=== PATIENT | female | born 1990 | race African-American/Black ===

== ENCOUNTER 2018-07-27 13:32 | Emergency (ER) | payer OTHER ==
[2018-07-27] MEDS ORDERED: NORMAL SALINE 1000 ML 1,000 ML IV ONE (14:18)
[2018-07-27] MEDS ORDERED: ACETAMINOPHEN 325 MG TABLET PO ONE (14:18)
--- NOTE | 2018-07-27 14:18 | ER Document Report ---
ED General - General Chief Complaint: Dizziness Stated Complaint: LIGHT HEADEDNESS Time Seen by Provider: 07/27/18 14:09 Notes: Patient is a 28-year-old female, , 38 weeks gravid that presents to the emergency department for chief complaint of lightheadedness and headache. Patient states that today she started feeling somewhat lightheaded, had a mild headache and felt overall fatigued, she states she is on iron pills but has not been on it for about a week, she is unsure if that is related to this. She currently rates her headache as a 3 out of 10, described as holocephalic, just overall not uncomfortable. Not the worst headache of her life. She denies any visual changes, nausea or vomiting. She denies having any abdominal pain. So far her she has not had any issues. Denies hypertension, or having any significant swelling in her legs. At this time she denies having any chest pain, shortness of breath, difficulty breathing. Past Medical History: Iron deficiency anemia Past Surgical History: Denies surgical history Social History: Denies tobacco, alcohol or illicit drug use. Family History: Reviewed and noncontributory for presenting illness Allergies: Reviewed, see documented allergy list. REVIEW OF SYSTEMS: Other than noted above, the 12 point review of systems was reviewed with the patient and were negative, all pertinent findings are included in the HPI. PHYSICAL EXAMINATION: Vital signs reviewed, nursing noted reviewed. GENERAL: Well-appearing, well-nourished and in no acute distress. HEAD: Atraumatic, normocephalic. EYES: Eyes appear normal, extraocular movements intact, sclera anicteric, conjunctiva are normal. PERRLA ENT: nares patent, oropharynx clear without exudates. Moist mucous membranes. NECK: Normal range of motion, supple without lymphadenopathy LUNGS: Breath sounds clear to auscultation bilaterally and equal. No wheezes rales or rhonchi. HEART: Regular rate and rhythm without murmurs ABDOMEN: Soft, gravid, nontender, normoactive bowel sounds. No rebound, guarding, or rigidity. No masses appreciated. EXTREMITIES: Nontender, good range of motion, no pitting or edema. NEUROLOGICAL: No focal neurological deficits. Moves all extremities spontaneously Motor and sensory grossly intact on exam. PSYCH: Normal mood, normal affect. SKIN: Warm, Dry, normal turgor, no rashes or lesions noted on exposed skin TRAVEL OUTSIDE OF THE [place] IN LAST 30 DAYS: No - Related Data Allergies/Adverse Reactions: No Known Allergies Allergy (Unverified 07/27/18 14:09) Past Medical History - Social History Smoking Status: Never Smoker Family History: Reviewed & Not Pertinent Patient has suicidal ideation: No Patient has homicidal ideation: No Renal/ Medical History: Denies: Hx Peritoneal Dialysis Physical Exam - Vital signs Vitals: Temp Pulse Resp BP Pulse Ox 98.0 F 87 14 112/50 L 98 07/27/18 13:45 07/27/18 13:45 07/27/18 13:45 07/27/18 13:45 07/27/18 13:45 Course - Re-evaluation Re-evalutation: Patient seen and examined vital signs reviewed. Laboratory data and imaging were ordered as appropriate for the patient's presenting symptoms and complaint, with consideration of any critical or life threatening conditions that may be associated with their obtained history and exam as noted above. Patient was treated with IV fluids, and Tylenol Results were reviewed when available and demonstrated mild anemia, otherwise unremarkable The patient was re-evaluated and was improved, stated that her symptoms were essentially resolved at this time Evaluation was most consistent with lightheadedness, nonspecific, cephalgia, nonspecific, the patient's headache and pattern were non-concerning for life- threatening causes of headache, such as subarachnoid hemorrhage, but unlikely the patient was mildly dehydrated as she did improve after IV fluids, her blood pressure was normal, and she had no protein in her urine, therefore preeclampsia is highly unlikely. Results were discussed with the patient at this point, after careful consideration I feel that that patient can be discharged from the emergency department, the patient was educated treatments and reasons to return to the emergency department based on their presumed diagnosis as noted above, they were advised to followup with a primary care physician in 2-3 days. Patient was agreeable to plan of care. *Note is created using voice recognition software and may contain spelling, syntax or grammatical errors. Laboratory 07/27/18 07/27/18 07/27/18 14:27 14:30 14:30 WBC 9.5 RBC 3.50 L Hgb 11.6 L Hct 34.0 L MCV 97 MCH 33.1 MCHC 34.1 RDW 13.8 Plt Count 128 L Seg Neutrophils % 79.6 H Lymphocytes % 14.2 Monocytes % 5.5 Eosinophils % 0.3 Basophils % 0.4 Absolute Neutrophils 7.5 Absolute Lymphocytes 1.3 Absolute Monocytes 0.5 Absolute Eosinophils 0.0 Absolute Basophils 0.0 Sodium 139.1 Potassium 4.3 Chloride 104 Carbon Dioxide 26 Anion Gap 9 BUN 5 L Creatinine 0.62 Est GFR ( Amer) > 60 Est GFR (Non-Af Amer) > 60 Glucose 94 Calcium 9.5 Total Bilirubin 0.4 Direct Bilirubin 0.1 Neonat Total Bilirubin Not Reportable Neonat Direct Bilirubin Not Reportable Neonat Indirect Bili Not Reportable AST 19 ALT 12 Alkaline Phosphatase 53 Total Protein 6.0 L Albumin 3.4 L Urine Color Urine Appearance Urine pH Ur Specific [place] Urine Protein Urine Glucose (UA) Urine Ketones Urine Blood Urine Nitrite Urine Bilirubin Urine Urobilinogen Ur Leukocyte Esterase Urine WBC (Auto) Urine RBC (Auto) U Hyaline Cast (Auto) Urine Bacteria (Auto) Squamous Epi Cells Auto Urine Mucus (Auto) Urine Ascorbic Acid Blood Type O NEGATIVE Antibody Screen POSITIVE Antibody Identification RHOGAM INDUCED ANTI-D 07/27/18 15:06 WBC RBC Hgb Hct MCV MCH MCHC RDW Plt Count Seg Neutrophils % Lymphocytes % Monocytes % Eosinophils % Basophils % Absolute Neutrophils Absolute Lymphocytes Absolute Monocytes Absolute Eosinophils Absolute Basophils Sodium Potassium Chloride Carbon Dioxide Anion Gap BUN Creatinine Est GFR ( Amer) Est GFR (Non-Af Amer) Glucose Calcium Total Bilirubin Direct Bilirubin Neonat Total Bilirubin Neonat Direct Bilirubin Neonat Indirect Bili AST ALT Alkaline Phosphatase Total Protein Albumin Urine Color STRAW Urine Appearance CLEAR Urine pH 7.0 Ur Specific [place] 1.005 Urine Protein NEGATIVE Urine Glucose (UA) NEGATIVE Urine Ketones NEGATIVE Urine Blood NEGATIVE Urine Nitrite NEGATIVE Urine Bilirubin NEGATIVE Urine Urobilinogen NEGATIVE Ur Leukocyte Esterase NEGATIVE Urine WBC (Auto) 0 Urine RBC (Auto) 0 U Hyaline Cast (Auto) 1 Urine Bacteria (Auto) TRACE Squamous Epi Cells Auto 6 Urine Mucus (Auto) RARE Urine Ascorbic Acid NEGATIVE Blood Type Antibody Screen Antibody Identification - Vital Signs Vital signs: Temp Pulse Resp BP Pulse Ox 98.5 F 68 18 111/57 L 100 07/27/18 16:27 07/27/18 16:27 07/27/18 16:27 07/27/18 16:27 07/27/18 16:27 - Laboratory Result Diagrams: 07/27/18 14:30 11/19/18 14:30 Laboratory results interpreted by me: 07/27/18 07/27/18 14:30 14:30 RBC 3.50 L Hgb 11.6 L Hct 34.0 L Plt Count 128 L Seg Neutrophils % 79.6 H BUN 5 L Total Protein 6.0 L Albumin 3.4 L - EKG Interpretation by Me Additional EKG results interpreted by me: \ECG demonstrates sinus rhythm with a ventricular rate of 70 bpm, normal axis, normal intervals, no evidence of acute ischemia on this EKG, no dysrhythmia. No prior ECG available for comparison. Discharge - Discharge Clinical Impression: Lightheadedness Anemia Qualifiers: Anemia type: unspecified type Qualified Code(s): D64.9 - Anemia, unspecified Condition: Stable Disposition: HOME, SELF-CARE Instructions: Dizziness ([facility]) Additional Instructions: Please return to the emergency department if you have any worsening, or concern of your symptoms. Please return to the emergency department if you develop chest pain, difficulty breathing, severe abdominal pain, or ongoing vomiting. Please follow-up with your primary care physician in 2-3 days and any other recommended physicians. If prescribed, take all medications as directed. If you have any questions or concerns do not hesitate to return the emergency department for evaluation. Prescriptions: Ferrous Sulfate [Feosol] 325 mg PO BID #30 tablet Referrals: [facility] [Provider Group] - Follow up in 3-5 days
[2018-07-27 15:02] LABS: ABSOLUTE LYMPHOCYTES (AUTO) 1.3 10^3/uL (0.5-4.7); ABSOLUTE MONOCYTES (AUTO) 0.5 10^3/uL (0.1-1.4); ABSOLUTE NEUT (AUTO) 7.5 10^3/uL (1.7-8.2); BASOPHILS % (AUTO) 0.4 % (0-2); EOSINOPHILS % (AUTO) 0.3 % (0-6); HEMOGLOBIN 11.6 g/dL (12.0-15.5); LYMPHOCYTES % (AUTO) 14.2 % (13-45); MEAN CORPUSCULAR HEMOGLOBIN 33.1 pg (27.0-33.4); MEAN CORPUSCULAR HGB CONC 34.1 g/dL (32.0-36.0); MEAN CORPUSCULAR VOLUME 97 fl (80-97); MONOCYTES % (AUTO) 5.5 % (3-13); PLATELET COUNT 128 10^3/uL (150-450); RED CELL DISTRIBUTION WIDTH 13.8 % (11.5-14.0); SEGMENTED NEUTROPHILS % (AUTO) 79.6 % (42-78); TOTAL CELLS COUNTED % (AUTO) 100 %; WHITE BLOOD COUNT 9.5 10^3/uL (4.0-10.5)
[2018-07-27 15:18] LABS: ALANINE AMINOTRANSFERASE 12 U/L (9-52); ALBUMIN 3.4 g/dL (3.5-5.0); ALKALINE PHOSPHATASE 53 U/L (38-126); ANION GAP 9 (5-19); ASPARTATE AMINO TRANSFERASE 19 U/L (14-36); BILIRUBIN,DIRECT 0.1 mg/dL (0.0-0.4); BILIRUBIN,TOTAL 0.4 mg/dL (0.2-1.3); BLOOD UREA NITROGEN 5 mg/dL (7-20); CALCIUM 9.5 mg/dL (8.4-10.2); CARBON DIOXIDE 26 mmol/L (22-30); CHLORIDE 104 mmol/L (98-107); GLUCOSE 94 mg/dL (75-110); POTASSIUM 4.3 mmol/L (3.6-5.0); SODIUM 139.1 mmol/L (137-145)
[2018-07-27 15:34] LABS: APPEARANCE,URINE CLEAR; BILIRUBIN,URINE NEGATIVE (NEGATIVE); COLOR,URINE STRAW; GLUCOSE, URINE NEGATIVE (NEGATIVE); KETONES,URINE NEGATIVE (NEGATIVE); LEUKOCYTE ESTERASE,URINE NEGATIVE (NEGATIVE); NITRITE,URINE NEGATIVE (NEGATIVE); PROTEIN,URINE NEGATIVE (NEGATIVE); URINE SPECIFIC GRAVITY 1.005; UROBILINOGEN,URINE NEGATIVE mg/dL (<2.0)
[2018-07-27 16:28] VITALS: BP 111/57
--- NOTE | 2018-07-27 21:57 | EKG REPORT ---
SEVERITY:- NORMAL ECG - SINUS RHYTHM : Confirmed by: Kristine Lee MD 27-Jul-2018 21:56:19
== END 2018-07-27 16:33 | disposition home or self-care (01) ==
LOC: ER 13:32
DX: O26.893 Other specified pregnancy related conditions, third trimester (principal); R42 Dizziness and giddiness; D64.9 Anemia, unspecified; R51 Headache; Z3A.38 38 weeks gestation of pregnancy
CPT/HCPCS: 93005; 99284; 96360; 86900; 86901; 36415; 86870; 86850; 85025; 80053; 81001; 93010; J7030

== ENCOUNTER 2018-08-02 09:59 | Outpatient (CLI) | payer OTHER ==
[2018-08-02 10:43] LABS: APPEARANCE,URINE SLIGHTLY-CLOUDY; BILIRUBIN,URINE NEGATIVE (NEGATIVE); COLOR,URINE YELLOW; GLUCOSE, URINE NEGATIVE (NEGATIVE); KETONES,URINE NEGATIVE (NEGATIVE); LEUKOCYTE ESTERASE,URINE NEGATIVE (NEGATIVE); NITRITE,URINE NEGATIVE (NEGATIVE); PROTEIN,URINE NEGATIVE (NEGATIVE); URINE SPECIFIC GRAVITY 1.006; UROBILINOGEN,URINE NEGATIVE mg/dL (<2.0)
[2018-08-02 10:58] LABS: URINE AMPHETAMINES SCREEN NEGATIVE; URINE BARBITURATES SCREEN NEGATIVE; URINE BENZODIAZEPINES SCREEN NEGATIVE; URINE COCAINE SCREEN NEGATIVE; URINE MARIJUANA (THC) SCREEN NEGATIVE; URINE METHADONE SCREEN NEGATIVE; URINE PHENCYCLIDINE SCREEN NEGATIVE
--- NOTE | 2018-08-02 11:49 | Non Stress Test Report ---
Non Stress Test Datetime Report Generated by CPN: 08/02/2018 11:49 DEMOGRAPHIC EGA NST: 38.4 INDICATION Indication for Study: Ordered by Provider Indication for Study (NST) Other: lc MONITORING Monitor Explained: Monitor Explained; Test Explained; Patient Verbalized Understanding Time on Monitor: 08/02/2018 10:49 Time off Monitor: 08/02/2018 11:20 NST Duration: 31 NST INTERVENTIONS NST Interventions: PO Hydration; Reposition Patient Physician Notified NST: Dr Younger BABY A: [id number] BABY A Movement : Present Contraction Frequency : x1 FHR Baseline : 125 Accelerations : 15X15 Decelerations : None Variability : Moderate 6-25bpm NST Review: Meets Criteria for Reactive NST NST Review and Verified By : Morgan Cassidy RN NST Results: Reactive NST REPORT Report Trigger: Send Report
== END 2018-08-02 11:45 | disposition home or self-care (01) ==
LOC: LC 09:59
PROVIDERS: ATTEND Obstetrics & Gynecology
PROC: 4A1HXCZ Monitoring of Products of Conception, Cardiac Rate, External Approach (ICD-10-PCS; principal; 2018-08-02)
DX: Z34.93 Encounter for supervision of normal pregnancy, unspecified, third trimester (principal)
CPT/HCPCS: 59025; 80307; 81005

== ENCOUNTER 2018-08-14 09:43 | Inpatient (IN) | payer OTHER ==
[2018-08-14] MEDS ORDERED: RINGERS SOLUTION,LACTATED 300 ML IV ONE (10:27)
[2018-08-14] MEDS ORDERED: OXYTOCIN/NORMAL SALINE 20 UNIT/1,000 ML RTUINJ IV PRN ×2 (10:27→19:29)
[2018-08-14] MEDS ORDERED: RINGERS SOLUTION,LACTATED 1,000 ML IV PRN (10:27)
[2018-08-14 11:05] LABS: APPEARANCE,URINE CLEAR; BILIRUBIN,URINE NEGATIVE (NEGATIVE); COLOR,URINE YELLOW; GLUCOSE, URINE NEGATIVE (NEGATIVE); KETONES,URINE NEGATIVE (NEGATIVE); LEUKOCYTE ESTERASE,URINE NEGATIVE (NEGATIVE); NITRITE,URINE NEGATIVE (NEGATIVE); PROTEIN,URINE NEGATIVE (NEGATIVE); URINE SPECIFIC GRAVITY 1.011; UROBILINOGEN,URINE NEGATIVE mg/dL (<2.0)
[2018-08-14 11:23] LABS: URINE AMPHETAMINES SCREEN NEGATIVE; URINE BARBITURATES SCREEN NEGATIVE; URINE BENZODIAZEPINES SCREEN NEGATIVE; URINE COCAINE SCREEN NEGATIVE; URINE MARIJUANA (THC) SCREEN NEGATIVE; URINE METHADONE SCREEN NEGATIVE; URINE PHENCYCLIDINE SCREEN NEGATIVE
--- NOTE | 2018-08-14 11:57 | Admission Physical ---
Datetime Report Generated by CPN: 08/14/2018 11:57 CURRENT ADMISSION Hx Assessment: The History has been Reviewed and is Current Chief Complaint: Suspected Ruptured Membranes Chief Complaint Other: Low RODRIGO Indication for Induction: Oligohydramnios Admit Impression : Term, Intrauterine ; No Active Labor; Intact Membranes; Induction of Labor Admit Plan: Admit to Unit; Initiate Labor Induction Protocol ALLERGIES Medication Allergies: No Medication Allergies: No Known Allergies (08/14/2018) Latex: No Latex Allergies OBSTETRICAL HISTORY EDC: 08/12/2018 00:00 : 3 Para: 1 Term: 1 : 1 SAB: 0 IAB: 0 Ectopic: 0 Livin Cesareans: 0 VBACs: 0 Multiple Births: 0 Gestational Diabetes: No Rh Sensitization: No Incompetent Cervix: No MARLON: No Infertility: No ART Treatment: No Uterine Anomaly: No IUGR: No Hx Previous C/S: No Macrosomia: No Hx Loss/Stillborn: No PIH: No Hx : Yes Placenta Previa/Abruption: No Depression/PP Depression: Yes PTL/PROM: No Post Hemorrhage: No Obstetrical History Comments: 1st induced at 27 weeks due to complications SEE RECORDS Alcohol: No Marijuana : No Cocaine: No Other Illicit Drugs: No Cigarettes: Never Smoker. 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 INFECTIOUS HISTORY Gonorrhea: No Genital Herpes: No Chlamydia: Yes Tuberculosis: No Syphilis: No Hepatitis: No HIV/AIDS Exposure: No Rash or Viral Illness: No HPV: No Infectious History Comments: Chlamydia PHYSICAL EXAM General: Normal HEENT: Normal Neurologic: Normal Thyroid: Normal Heart: Normal Lungs: Normal Breast: Deferred Back: Normal Abdomen: Normal Genitourinary Exam: Normal Extremities: Normal DTRs: Normal Pelvic Type: Adequate Physical Exam Comments: GBS Neg Oligo Vital Signs: Reviewed FETUS A EGA: 40.2 Monitoring: External US FHR- Baseline: 140 Variability: Moderate 6-25bpm Admit Comment: Seen in office today and had a NR NST and low RODRIGO, amnisure neg, admitted for IOL for oligo Pelvis proven for 7 lbs, EFW 7-8 Transfer from [facility] @ 35+6 weeks GBS neg Plan: start Pitocin PLANS FOR LABOR AND DELIVERY Labor and Delivery: None Pain Management: Epidural Feeding Preference: Both Benefit of Breast Feed Discussed: Yes Circumcision: N/A INFORMED CONSENT Assignment: Tarsha Rendon MD Signature: with User ID: [email or web address] : with User ID: [email or web address]
[2018-08-14] MEDS ORDERED: MISOPROSTOL 0.2 MG TABLET ONE (12:19)
[2018-08-14] MEDS ORDERED: OXYTOCIN 10 UNIT/ML VIAL ONE (12:19)
[2018-08-14] MEDS ORDERED: OXYTOCIN/NORMAL SALINE 20 UNIT/1,000 ML RTUINJ ONE (12:19)
[2018-08-14] MEDS ORDERED: LIDOCAINE 1% INJ-PF (10 MG/ML) 30 ML SDV ONE (12:19)
[2018-08-14 12:23] LABS: ABSOLUTE LYMPHOCYTES (AUTO) 1.4 10^3/uL (0.5-4.7); ABSOLUTE MONOCYTES (AUTO) 0.5 10^3/uL (0.1-1.4); ABSOLUTE NEUT (AUTO) 7.6 10^3/uL (1.7-8.2); BASOPHILS % (AUTO) 0.3 % (0-2); EOSINOPHILS % (AUTO) 0.3 % (0-6); HEMATOCRIT 33.5 % (36.0-47.0); HEMOGLOBIN 11.4 g/dL (12.0-15.5); LYMPHOCYTES % (AUTO) 14.4 % (13-45); MEAN CORPUSCULAR HEMOGLOBIN 33.1 pg (27.0-33.4); MEAN CORPUSCULAR HGB CONC 34.1 g/dL (32.0-36.0); MEAN CORPUSCULAR VOLUME 97 fl (80-97); MONOCYTES % (AUTO) 5.6 % (3-13); PLATELET COUNT 115 10^3/uL (150-450); RED BLOOD COUNT 3.45 10^6/uL (3.72-5.28); RED CELL DISTRIBUTION WIDTH 13.6 % (11.5-14.0); SEGMENTED NEUTROPHILS % (AUTO) 79.4 % (42-78); TOTAL CELLS COUNTED % (AUTO) 100 %; WHITE BLOOD COUNT 9.6 10^3/uL (4.0-10.5)
--- NOTE | 2018-08-14 13:57 | L&D Progress Notes ---
PROGRESS NOTES Datetime Report Generated by CPN: 08/14/2018 13:57 PROGRESS NOTE Comment: Cat 1 strip, irreg uc's, continue Pitocin LAST VAGINAL EXAM-NURSING Dilitation: 2.0 Effacement: 20 Station: -3 Contractions: patient states that she has constant back pain SIGNATURE SIGNATURE: [id number];[id number];[id number] SIGNATURE: [id number];[id number] SIGNATURE: [id number] Assignment: Tarsha Rendon MD Signature: with User ID: [email or web address] : with User ID: [email or web address]
--- NOTE | 2018-08-14 15:11 | L&D Progress Notes ---
PROGRESS NOTES Datetime Report Generated by CPN: 08/14/2018 15:11 PROGRESS NOTE Impression: Normal Progression of Labor Procedures: Artificial ROM; Sterile Vag Exam Plan: Continue Present Management; Induction Comment: VE=/vtx/0, AROM, no fluid, Cat 1 strip, uc's q 3-4 x 50-60 sec, breathing withuc's, does not want epidural, nervous cause she had a back injury in , would like to labor without meds VAGINAL EXAM Dilitation: 4.0 Effacement: 90 Station: 0 FETUS A Presentation- Other: . FETUS C SIGNATURE: [id number];[id number];[id number] Assignment: Tarsha Rendon MD Signature: with User ID: [email or web address] : with User ID: [email or web address]
[2018-08-14] MEDS ORDERED: NALBUPHINE HCL INJ 10 MG/1 ML AMPULE INJ ONE (16:30)
[2018-08-14] MEDS ORDERED: NALBUPHINE HCL INJ 10 MG/1 ML AMPULE ONE (16:32)
[2018-08-14] MEDS ORDERED: BUPIVACAINE HCL 0.5 % INJ/PF 30 ML SDV ONE (16:55)
[2018-08-14] MEDS ORDERED: EPHEDRINE SULFATE INJ 50 MG/1 ML AMPULE ONE ×2 (16:55→17:24)
[2018-08-14] MEDS ORDERED: FENTANYL/BUPIVACAINE/NS/PF 300 MCG/150 ML RTUINJ EPI ONE (16:55)
[2018-08-14] MEDS ORDERED: FENTANYL CITRATE INJ/PF 100 MCG/2 ML AMPUL ONE (17:24)
[2018-08-14] MEDS ORDERED: BUPIVACAINE HCL 0.25 % INJ/PF (2.5 MG/1 ML) 30 ML VIAL ONE (17:24)
[2018-08-14] MEDS ORDERED: PHENYLEPHRINE HCL INJ/PF 10 MG/1 ML SDV ONE (17:24)
[2018-08-14] MEDS ORDERED: PROMETHAZINE HCL 25 MG SUPP.RECT PR PRN (19:29)
[2018-08-14] MEDS ORDERED: MAGNESIUM HYDROXIDE SUSP 30 ML UDCUP PO PRN (19:29)
[2018-08-14] MEDS ORDERED: PROMETHAZINE HCL INJ 25 MG/1 ML VIAL IV PRN (19:29)
[2018-08-14] MEDS ORDERED: PSEUDOEPHEDRINE HCL 30 MG TABLET PO PRN (19:29)
[2018-08-14] MEDS ORDERED: NA PHOS,M-B/NA PHOS,DI-BA (ADULT) 133 ML ENEMA PR PRN (19:29)
[2018-08-14] MEDS ORDERED: ACETAMINOPHEN WITH CODEINE #3 TABLET PO PRN (19:29)
[2018-08-14] MEDS ORDERED: DIPHENHYDRAMINE HCL 25 MG CAPSULE PO PRN (19:29)
[2018-08-14] MEDS ORDERED: BENZOCAINE/MENTHOL AEROSOL SPRAY 56 ML TOP PRN (19:29)
[2018-08-14] MEDS ORDERED: ZOLPIDEM TARTRATE 5 MG TABLET PO PRN (19:29)
[2018-08-14] MEDS ORDERED: MEASLES,MUMPS&RUBELLA VACC/PF 0.5 ML VIAL SUBCUT PRN (19:29)
[2018-08-14] MEDS ORDERED: GLYCERIN/WITCH HAZEL LEAF 1 EACH MED..PAD TP PRN (19:29)
[2018-08-14] MEDS ORDERED: DIBUCAINE 1% OINTMENT 28 GM TP PRN (19:29)
[2018-08-14] MEDS ORDERED: ACETAMINOPHEN 325 MG TABLET PO PRN (19:29)
[2018-08-14] MEDS ORDERED: DIPH/PERTUSS(ACELL)/TETANUS VAC/PF 0.5 ML SYR (>=10YO) IM PRN (19:29)
[2018-08-14] MEDS ORDERED: PROMETHAZINE HCL 25 MG TABLET PO PRN (19:29)
[2018-08-14] MEDS ORDERED: IBUPROFEN 800 MG TABLET ONE (20:40)
[2018-08-14] MEDS: IBUPROFEN 800 MG TABLET PO SCH (21:00)
[2018-08-15] MEDS: FAMOTIDINE 20 MG TABLET PO SCH ×3 (01:16→22:19)
[2018-08-15] MEDS: ACETAMINOPHEN WITH CODEINE #3 TABLET PO PRN ×2 (01:16→16:01)
[2018-08-15] MEDS: IBUPROFEN 800 MG TABLET PO SCH ×3 (05:40→22:21)
[2018-08-15 09:06] LABS: HEMATOCRIT 31.8 % (36.0-47.0); HEMOGLOBIN 10.8 g/dL (12.0-15.5); MEAN CORPUSCULAR HEMOGLOBIN 32.7 pg (27.0-33.4); MEAN CORPUSCULAR HGB CONC 33.9 g/dL (32.0-36.0); MEAN CORPUSCULAR VOLUME 97 fl (80-97); PLATELET COUNT 113 10^3/uL (150-450); RED BLOOD COUNT 3.29 10^6/uL (3.72-5.28); RED CELL DISTRIBUTION WIDTH 13.5 % (11.5-14.0); WHITE BLOOD COUNT 11.4 10^3/uL (4.0-10.5)
--- NOTE | 2018-08-15 09:58 | PDOC PROGRESS REPORT ---
Subjective-OB Progress Note for:: 08/15/18 Subjective: Doing well, no c/o Physical Exam (OB) Vital Signs: Temp Pulse Resp BP Pulse Ox 98.1 F 65 16 108/56 L 99 08/15/18 07:17 08/15/18 07:17 08/15/18 07:17 08/15/18 07:17 08/15/18 07:17 Intake & Output 08/14/18 08/15/18 08/16/18 06:59 06:59 06:59 Weight 104.9 kg - PIH/Pre-Eclampsia DTR's: 2 + Clonus: Negative Headache: Absent Epigastric Pain: No Visual Changes: No - Lochia Lochia Amount: Scant < 10 ml Lochia Color: Rubra/Red - Abdomen Description: Tender Hernia Present: No Fundal Description: Firm, Midline Fundal Height: 1/u - 2/u Objective-Diagnostic Laboratory: 08/15/18 07:57 08/14/18 08/14/18 08/14/18 10:01 11:23 11:23 WBC 9.6 RBC 3.45 L Hgb 11.4 L Hct 33.5 L MCV 97 MCH 33.1 MCHC 34.1 RDW 13.6 Plt Count 115 L Seg Neutrophils % 79.4 H Lymphocytes % 14.4 Monocytes % 5.6 Eosinophils % 0.3 Basophils % 0.3 Absolute Neutrophils 7.6 Absolute Lymphocytes 1.4 Absolute Monocytes 0.5 Absolute Eosinophils 0.0 Absolute Basophils 0.0 Urine Color YELLOW Urine Appearance CLEAR Urine pH 7.0 Ur Specific [place] 1.011 Urine Protein NEGATIVE Urine Glucose (UA) NEGATIVE Urine Ketones NEGATIVE Urine Blood NEGATIVE Urine Nitrite NEGATIVE Ur Leukocyte Esterase NEGATIVE Blood Type O NEGATIVE Antibody Screen NEGATIVE 08/15/18 08/15/18 07:57 07:57 WBC 11.4 H RBC 3.29 L Hgb 10.8 L Hct 31.8 L MCV 97 MCH 32.7 MCHC 33.9 RDW 13.5 Plt Count 113 L Seg Neutrophils % Lymphocytes % Monocytes % Eosinophils % Basophils % Absolute Neutrophils Absolute Lymphocytes Absolute Monocytes Absolute Eosinophils Absolute Basophils Urine Color Urine Appearance Urine pH Ur Specific [place] Urine Protein Urine Glucose (UA) Urine Ketones Urine Blood Urine Nitrite Ur Leukocyte Esterase Blood Type O NEGATIVE Antibody Screen Assessment and Plan(PN) - Assessment and Plan (1) Compound presentation of fetus Qualifiers: Fetus number: single or unspecified fetus Qualified Code(s): O32.6XX0 - Maternal care for compound presentation, not applicable or unspecified Is this a current diagnosis for this admission?: Yes (2) Gestational thrombocytopenia Qualifiers: Trimester: unspecified trimester Qualified Code(s): O99.119 - Other diseases of the blood and blood-forming organs and certain disorders involving the immune mechanism complicating , unspecified trimester; D69.6 - Thrombocytopenia, unspecified; D69.6 - Thrombocytopenia, unspecified; D69.6 - Thrombocytopenia, unspecified Is this a current diagnosis for this admission?: Yes (3) Oligohydramnios antepartum Qualifiers: Fetus number: single or unspecified fetus Qualified Code(s): O41.00X0 - Oligohydramnios, unspecified trimester, not applicable or unspecified Is this a current diagnosis for this admission?: Yes (4) Vaginal delivery Is this a current diagnosis for this admission?: Yes - Time Spent with Patient Time with patient: Less than 15 minutes Medications reviewed and adjusted accordingly: Yes - Disposition Anticipated Discharge: Home Within: within 24 hours
[2018-08-15] MEDS: SENNOSIDES/DOCUSATE 8.6-50 MG 1 EACH TABLET PO SCH (10:22)
[2018-08-15] MEDS: PRENATAL VITAMIN W DHA CAPSULE PO SCH (10:22)
[2018-08-15] MEDS: FERROUS SULFATE 325 MG TABLET PO SCH ×2 (10:22→17:40)
[2018-08-15] MEDS: DOCUSATE SODIUM 100 MG CAPSULE PO SCH ×2 (10:22→17:40)
[2018-08-16 08:26] VITALS: BP 107/68
--- NOTE | 2018-08-16 10:23 | PDOC PROGRESS REPORT ---
Subjective-OB Progress Note for:: 08/16/18 Subjective: Doing well, ready to go home but baby is jaundice and will spend the night Physical Exam (OB) Vital Signs: Temp Pulse Resp BP Pulse Ox 98.4 F 65 18 107/68 99 08/16/18 07:41 08/16/18 07:41 08/16/18 07:41 08/16/18 07:41 08/16/18 07:41 Intake & Output 08/15/18 08/16/18 08/17/18 06:59 06:59 06:59 Intake Total 300 Balance 300 Weight 104.9 kg - PIH/Pre-Eclampsia DTR's: 2 + Clonus: Negative Headache: Absent Epigastric Pain: No Visual Changes: No - Lochia Lochia Amount: Scant < 10 ml Lochia Color: Rubra/Red - Abdomen Description: Tender, Soft Hernia Present: No Fundal Description: Firm, Midline Fundal Height: u/u - u/2 Objective-Diagnostic Laboratory: 08/15/18 07:57 08/15/18 07:57 Blood Type O NEGATIVE Assessment and Plan(PN) - Assessment and Plan (1) Compound presentation of fetus Qualifiers: Fetus number: single or unspecified fetus Qualified Code(s): O32.6XX0 - Maternal care for compound presentation, not applicable or unspecified Is this a current diagnosis for this admission?: Yes (2) Gestational thrombocytopenia Qualifiers: Trimester: unspecified trimester Qualified Code(s): O99.119 - Other diseases of the blood and blood-forming organs and certain disorders involving the immune mechanism complicating , unspecified trimester; D69.6 - Thrombocytopenia, unspecified; D69.6 - Thrombocytopenia, unspecified; D69.6 - Thrombocytopenia, unspecified Is this a current diagnosis for this admission?: Yes (3) Oligohydramnios antepartum Qualifiers: Fetus number: single or unspecified fetus Qualified Code(s): O41.00X0 - Oligohydramnios, unspecified trimester, not applicable or unspecified Is this a current diagnosis for this admission?: Yes (4) Vaginal delivery Is this a current diagnosis for this admission?: Yes - Time Spent with Patient Time with patient: Less than 15 minutes Medications reviewed and adjusted accordingly: Yes - Disposition Anticipated Discharge: Home Within: within 24 hours
--- NOTE | 2018-08-16 10:27 | PDOC DISCHARGE SUMMARY ---
Final Diagnosis Discharge Date: 08/16/18 - Final Diagnosis (1) Compound presentation of fetus Is this a current diagnosis for this admission?: Yes (2) Gestational thrombocytopenia Is this a current diagnosis for this admission?: Yes (3) Oligohydramnios antepartum Is this a current diagnosis for this admission?: Yes (4) Vaginal delivery Is this a current diagnosis for this admission?: Yes Discharge Data - Discharge Medication Home Medications: Ferrous Sulfate [Feosol] 325 mg PO BID #30 tablet 07/27/18 Vit,Calc76/Iron/Folic [Prenatabs Rx Tablet] 1 tab PO DAILY 08/02/18 Gestational Age: 40.2 Reason(s) for Admission: Induction of Labor Admission Note: oliogohydramnios Procedures: NST, Ultrasound Intrapartum Procedure(s): Spontaneous Vaginal Delivery - Diagnosis Test Laboratory: Temp Pulse Resp BP Pulse Ox 98.4 F 65 18 107/68 99 08/16/18 07:41 08/16/18 07:41 08/16/18 07:41 08/16/18 07:41 08/16/18 07:41 08/14/18 08/14/18 08/15/18 10:01 11:23 07:57 RBC 3.45 L 3.29 L Hgb 11.4 L 10.8 L Hct 33.5 L 31.8 L Urine Opiates Screen NEGATIVE - Discharge information/Instructions Discharge Activity: Activity As Tolerated, No Lifting Over 10 Pounds, No Lifting /Push/Pulling, Pelvic Rest, No tub bath Discharge Diet: As Tolerated, Regular Disposition: HOME, SELF-CARE Follow up with: [facility] in: 4, Weeks
[2018-08-16] MEDS: FERROUS SULFATE 325 MG TABLET PO SCH (11:11)
[2018-08-16] MEDS: PRENATAL VITAMIN W DHA CAPSULE PO SCH (11:12)
[2018-08-16] MEDS: DOCUSATE SODIUM 100 MG CAPSULE PO SCH (11:12)
[2018-08-16] MEDS: FAMOTIDINE 20 MG TABLET PO SCH (11:12)
[2018-08-16] MEDS: SENNOSIDES/DOCUSATE 8.6-50 MG 1 EACH TABLET PO SCH (11:12)
[2018-08-16] MEDS: ACETAMINOPHEN WITH CODEINE #3 TABLET PO PRN (11:53)
[2018-08-16] MEDS: IBUPROFEN 800 MG TABLET PO SCH (13:45)
--- NOTE | 2018-08-19 14:30 | Delivery Summary ---
Del Sum A-C Datetime Report Generated by CPN: 08/19/2018 14:30 DELIVERY PERSONNEL DELIVERY PERSONNEL: [id number] Delivery Doctor:: Tarsha Rendon MD Labor and Delivery Nurse:: Neal Mccartney RNorientation and mobility specialist Nurse:: Saloni Taylor RN Nursery Nurse:: Luana Mackey RN Environmental Emergencies Planner/NON CATEGORICAL PRESCHOOL TEACHER: Maria Alejandra Wiley CNA II MATERNAL INFORMATION Delivery Anesthesia: Epidural Medications After Delivery: Pitocin Bolus-Please Comment; Pitocin Drip 20 Units/1000ml NSS Meds After Delivery Comment: Pitocin 20 units in 1 L NS bolusing per order Estimated Blood Loss (ml): 100 Maternal Complications: None Provider Comments: VFI delivered in [place] presentation with compound left arm and left hand. Shoulders and body delivered without difficulty. Cord doubly clamped and cut and infant to maternal abdomen for NRP. Placenta delivered intact spontaneously. FF at U. Good hemostasis. No perineal laceration. Mother and baby stable upon provider leaving the room. LABOR SUMMARY EDC: 08/12/2018 00:00 No. Babies in Womb: 1 Attempted: No Labor Anesthesia: Epidural LABOR INFORMATION Reason for Induction: Oligohydramnios Complete Dilatation: 08/14/2018 18:30 Oxytocin: Induction Group B Beta Strep: neg Antibiotics # of Doses: 0 Antibiotics Time of Last Dose: n/a Name of Antibiotic Given: n/a Steroids Given: None Reason Steroids Not Administered: Not Applicable MEMBRANES Membranes Rupture Method: Artificial Rupture of Membranes: 08/14/2018 15:03 Length of Rupture (hr): 3.98 Amniotic Fluid Color: Clear Amniotic Fluid Amount: Scant Amniotic Fluid Odor: Normal STAGES OF LABOR Stage 2 hr: 0 Stage 2 min: 32 Stage 3 hr: 0 Stage 3 min: 5 VAGINAL DELIVERY Episiotomy: None Laceration #1: None Laceration Extension #1: N/A Laceration Repair: Not Applicable Initial Vag Sponge Count: 0 Final Vag Sponge Count: 0 Initial Vag Sharps Count: 0 Final Vag Sharps Count: 0 Sponge Count Correct: Yes Sharps Count Correct: Yes CSECTION DELIVERY Primary Indication: N/A Secondary Indication: N/A CSection Incidence: N/A Labor: N/A Elective: N/A CSection Incision: N/A BABY A INFORMATION Infant Delivery Date/Time: 08/14/2018 19:02 Method of Delivery: Vaginal Method of Delivery: Vaginal Born in Route : No : N/A Forceps: N/A Vacuum Extraction: N/A Shoulder Dystocia : No PRESENTATION/POSITION BABY A Presentation: Cephalic Cephalic Presentation: Vertex Vertex Position: Right Occipital Anterior Breech Presentation: N/A PLACENTA INFORMATION BABY A Placenta Delivery Time : 08/14/2018 19:07 Placenta Method of Delivery: Spontaneous Placenta Method of Delivery: Spontaneous Placenta Status: Delivered SCORES BABY A Heart Rate 1 min: >100 bpm Resp Effort 1 min: Good Cry Reflex Irritability 1 min: Cough or Sneeze or Pulls Away Muscle Tone 1 min: Some Flexion of Extremities Color 1 min: Body Cana, Extremities Blue SCORE 1 MIN: 8 Heart Rate 5 min: >100 bpm Resp Effort 5 min: Good Cry Reflex Irritability 5 min: Cough or Sneeze or Pulls Away Muscle Tone 5 min: Some Flexion of Extremities Color 5 min: Completely Cana SCORE 5 MIN: 9 INFANT INFORMATION BABY A Gestational Age at Delivery: 40.2 Gestational Status: Full Term- 39- 40.6 Weeks Outcome : Liveborn Infant Condition : Stable Infant Sex: Female IDENTIFICATION BABY A Verification Date/Time: 08/14/2018 19:15 ID Band Number: [id number] Mother's Name Verified: Yes RN Verifying Infant: A. Quinn, RN Additional Verifying Personnel: Misael Mccartney, RN WEIGHT/LENGTH BABY A Birthweight (gm): 3085 Infant Weight (lb): 6 Infant Weight (oz): 13 Length (in): 21.00 Infant Length (cm): 53.34 CORD INFORMATION BABY A No. Cord Vessels: 3 Nuchal Cord : N/A Nuchal Cord- Other: Compound Left Hand Cord Blood Taken: Yes-For Eval (Mom's Blood Type - or O+) Infant Suction: Mouth ASSESSMENT BABY A Skin to Skin: Yes Skin to Skin: Yes Skin to Skin: Yes Skin to Skin: Yes Skin to Skin: Yes Skin to Skin: Yes Skin to Skin: Yes Skin to Skin: Yes BABY B INFORMATION : N/A SIGNATURES Signature: with User ID: [email or web address]
== END 2018-08-16 13:48 | disposition home or self-care (01) | DRG 806 ==
LOC: LC 09:43 → LR 10:37 → 2S 21:49
PROVIDERS: ADMIT Student in an Organized Health Care Education/Training Program; ATTEND Student in an Organized Health Care Education/Training Program
PROC: 10E0XZZ Delivery of Products of Conception, External Approach (ICD-10-PCS; principal; 2018-08-14)
PROC: 3E033VJ Introduction of Other Hormone into Peripheral Vein, Percutaneous Approach (ICD-10-PCS; 2018-08-14)
PROC: 10907ZC Drainage of Amniotic Fluid, Therapeutic from Products of Conception, Via Natural or Artificial Opening (ICD-10-PCS; 2018-08-14)
PROC: 4A1HXCZ Monitoring of Products of Conception, Cardiac Rate, External Approach (ICD-10-PCS; 2018-08-14)
PROC: 3E0234Z Introduction of Serum, Toxoid and Vaccine into Muscle, Percutaneous Approach (ICD-10-PCS; 2018-08-15)
DX: O41.03X0 Oligohydramnios, third trimester, not applicable or unspecified (principal); O99.12 Other diseases of the blood and blood-forming organs and certain disorders involving the immune mechanism complicating childbirth; Z37.0 Single live birth; O26.893 Other specified pregnancy related conditions, third trimester; Z67.41 Type O blood, Rh negative; O32.6XX0 Maternal care for compound presentation, not applicable or unspecified; D69.6 Thrombocytopenia, unspecified; Z3A.40 40 weeks gestation of pregnancy
CPT/HCPCS: 36415; 80307; 81005; 84112; 85025; 85027; 85461; 86592; 86850; 86900; 86901; 88307; 94760; J2300; J2370; J2590; J2790; J3010; J3490

== ENCOUNTER 2018-08-19 10:51 | Emergency (ER) | payer OTHER ==
[2018-08-19 11:04] VITALS: BP 123/64
[2018-08-19] MEDS ORDERED: KETOROLAC TROMETHAMINE 60 MG/2 ML SDV IM ONE (11:19)
--- NOTE | 2018-08-19 11:23 | ER Document Report ---
ED Medical Screen (RME) - General Chief Complaint: Pain All Over Stated Complaint: BODY PAIN Time Seen by Provider: 08/19/18 11:12 Notes: Patient is a 28-year-old female that recently gave 4 days ago that presents to the emergency department for chief complaint of breast pain, as well as lower back pain. Patient reports she had an epidural, and states she is been having low back pain. It is mainly in the sacral region. Denies any numbness, tingling or weakness. She also denies having any fevers, chills or night sweats. No neck stiffness or pain. ROS: Other than noted above, the 12 point review of systems was reviewed with the patient and were negative, all pertinent findings are included in the HPI. PHYSICAL EXAMINATION: Vital signs reviewed. GENERAL: Well-appearing, well-nourished and in no acute distress. HEAD: Atraumatic, normocephalic. EYES: Pupils equal round extraocular movements intact, conjunctiva are normal. ENT: Nares patent NECK: Normal range of motion CV: Heart regular rate and rhythm LUNGS: No respiratory distress Musculoskeletal: Normal range of motion, no midline tenderness to the lumbar or thoracic spine. NEUROLOGICAL: Normal speech PSYCH: Normal mood, normal affect. MDM: Patient seen and examined for rapid initial assessment. Vital signs reviewed. A comprehensive ED assessment and evaluation of the patient, analysis of test results and completion of the medical decision making process will be conducted by additional ED providers. *Note is created using voice recognition software and may contain spelling, syntax or grammatical errors. TRAVEL OUTSIDE OF THE [place] IN LAST 30 DAYS: No - Related Data Allergies/Adverse Reactions: No Known Allergies Allergy (Verified 08/14/18 10:22) Past Medical History Renal/ Medical History: Denies: Hx Peritoneal Dialysis Physical Exam - Vital signs Vitals: Temp Pulse Resp BP Pulse Ox 98.1 F 67 20 123/64 96 08/19/18 11:01 08/19/18 11:08/19/18 11:08/19/18 11:08/19/18 11:01 Course - Vital Signs Vital signs: Temp Pulse Resp BP Pulse Ox 98.1 F 67 20 123/64 96 08/19/18 11:01 08/19/18 11:01 08/19/18 11:01 08/19/18 11:01 08/19/18 11:01
[2018-08-19] MEDS ORDERED: IBUPROFEN 600 MG TABLET ONE (11:51)
[2018-08-19] MEDS ORDERED: IBUPROFEN 600 MG TABLET PO ONE (11:53)
[2018-08-19 12:30] LABS: APPEARANCE,URINE CLOUDY; BILIRUBIN,URINE NEGATIVE (NEGATIVE); COLOR,URINE YELLOW; GLUCOSE, URINE NEGATIVE (NEGATIVE); KETONES,URINE NEGATIVE (NEGATIVE); LEUKOCYTE ESTERASE,URINE MODERATE (NEGATIVE); NITRITE,URINE NEGATIVE (NEGATIVE); PROTEIN,URINE 30 mg/dL (NEGATIVE); URINE SPECIFIC GRAVITY 1.014; UROBILINOGEN,URINE NEGATIVE mg/dL (<2.0)
== END 2018-08-19 13:05 | disposition left against medical advice (07) ==
LOC: ER 10:51
DX: Z53.21 Procedure and treatment not carried out due to patient leaving prior to being seen by health care provider (principal); M79.10 Myalgia, unspecified site; N64.4 Mastodynia; M54.5 Low back pain; M53.3 Sacrococcygeal disorders, not elsewhere classified
CPT/HCPCS: 81001; 87086; 99281

== ENCOUNTER 2018-09-09 08:52 | Emergency (ER) | payer OTHER ==
--- NOTE | 2018-09-09 09:46 | ER Document Report ---
ED Medical Screen (RME) - General Chief Complaint: General Weakness Stated Complaint: DIZZY, LIGHTHEADED, WEAKNESS Time Seen by Provider: 09/09/18 09:44 Mode of Arrival: Ambulatory Information source: Patient Notes: 28-year-old female with history of iron deficiency anemia 1 month presents with complaint of 1 week of headache, dizziness, nausea and decreased appetite. I have greeted and performed a rapid initial assessment of this patient. A comprehensive ED assessment and evaluation of the patient, analysis of test results and completion of medical decision making process we will be contacted by additional ED providers. PHYSICAL EXAMINATION: Vital signs reviewed-within normal limits GENERAL: Well-appearing, well-nourished and in no acute distress. LUNGS: No respiratory distress Musculoskeletal: Normal range of motion NEUROLOGICAL: Normal speech, normal gait. PSYCH: Normal mood, normal affect. SKIN: Warm, Dry, normal turgor, no rashes or lesions noted. TRAVEL OUTSIDE OF THE [place] IN LAST 30 DAYS: No - HPI Onset: Last week Onset/Duration: Gradual, Persistent Quality of pain: Achy Severity: Mild Associated Symptoms: Dizzy/lightheaded, Headache, Nausea Exacerbated by: Walking Relieved by: Denies Similar symptoms previously: No Recently seen / treated by doctor: Yes - Related Data Smoking: Non-smoker Frequency of alcohol use: None Drug Abuse: None Allergies/Adverse Reactions: No Known Allergies Allergy (Verified 09/09/18 08:54) Past Medical History - Social History Chew tobacco use (# tins/day): No Frequency of alcohol use: None Drug Abuse: None Renal/ Medical History: Denies: Hx Peritoneal Dialysis Physical Exam - Vital signs Vitals: Temp Pulse Resp BP Pulse Ox 98.6 F 70 16 114/67 97 09/09/18 09:00 09/09/18 09:00 09/09/18 09:00 09/09/18 09:00 09/09/18 09:00 Course - Vital Signs Vital signs: Temp Pulse Resp BP Pulse Ox 98.6 F 70 16 114/67 97 09/09/18 09:00 09/09/18 09:00 09/09/18 09:00 09/09/18 09:00 09/09/18 09:00 Doctor's Discharge - Discharge Referrals: MELANIA PETTY MD [Primary Care Provider] - Follow up as needed
--- NOTE | 2018-09-09 10:12 | ER Document Report ---
ED General - General Chief Complaint: General Weakness Stated Complaint: DIZZY, LIGHTHEADED, WEAKNESS Time Seen by Provider: 09/09/18 09:44 Mode of Arrival: Ambulatory Notes: Patient is a 28-year-old female that presents to the emergency department for chief complaint of lightheadedness, decreased appetite. Patient states that for the past month she has been feeling lightheaded, and having a decreased appetite, decreased oral intake overall since delivery of her daughter. But today it seemed to be worse, she felt like she almost would pass out, and wanted to come in sooner to be checked out, she does have an appointment coming up with the [facility], but she was concerned about this so she decided to come in. She denies having any chest pain, palpitations, lightheadedness, headache, shortness of breath, difficulty breathing, nausea, vomiting or abdominal pain. She also denies having any dysuria, hematuria or abnormal vaginal bleeding. Past Medical History: Denies chronic medical conditions Past Surgical History: Denies surgical history Social History: Denies current tobacco, alcohol or drug use. Family History: Reviewed and noncontributory for presenting illness Allergies: Reviewed, see documented allergy list. REVIEW OF SYSTEMS: Other than noted above, the 12 point review of systems was reviewed with the patient and were negative, all pertinent findings are included in the HPI. PHYSICAL EXAMINATION: Vital signs reviewed, nursing noted reviewed. GENERAL: Well-appearing, well-nourished and in no acute distress. HEAD: Atraumatic, normocephalic. EYES: Eyes appear normal, extraocular movements intact, sclera anicteric, conjunctiva are normal. ENT: nares patent, oropharynx clear without exudates. Moist mucous membranes. NECK: Normal range of motion, supple without lymphadenopathy LUNGS: Breath sounds clear to auscultation bilaterally and equal. No wheezes rales or rhonchi. HEART: Regular rate and rhythm without murmurs ABDOMEN: Soft, nontender, normoactive bowel sounds. No rebound, guarding, or rigidity. No masses appreciated. EXTREMITIES: Nontender, good range of motion, no pitting or edema. NEUROLOGICAL: No focal neurological deficits. Moves all extremities spont aneously Motor and sensory grossly intact on exam. PSYCH: Normal mood, normal affect. SKIN: Warm, Dry, normal turgor, no rashes or lesions noted on exposed skin TRAVEL OUTSIDE OF THE [place] IN LAST 30 DAYS: No - Related Data Allergies/Adverse Reactions: No Known Allergies Allergy (Verified 09/09/18 10:28) Past Medical History - General Information source: Patient - Social History Smoking Status: Unknown if Ever Smoked Chew tobacco use (# tins/day): No Frequency of alcohol use: None Drug Abuse: None Family History: Reviewed & Not Pertinent Patient has suicidal ideation: No Patient has homicidal ideation: No Renal/ Medical History: Denies: Hx Peritoneal Dialysis Physical Exam - Vital signs Vitals: Temp Pulse Resp BP Pulse Ox 98.6 F 70 16 114/67 97 09/09/18 09:00 09/09/18 09:00 09/09/18 09:00 09/09/18 09:00 09/09/18 09:00 Course - Re-evaluation Re-evalutation: Patient seen and examined vital signs reviewed. Patient was evaluated and treated as appropriate for the patient's presenting symptoms and complaint, with consideration of any critical or life threatening conditions that may be associated with their obtained history and exam as noted above. Patient was treated with Zofran ODT 4 mg The patient was re-evaluated and was stable, ambulating in the room, no acute distress Evaluation was most consistent with lightheadedness, patient has had decreased appetite, not eating or drinking on a daily basis as much as she usually would, I think that this is related and causing her lightheadedness, her blood work was unremarkable, no anemia, electrolyte is normal, normal renal function, UA negative. Plan of care was discussed with the patient at this point, after careful consideration I feel that that patient can be discharged from the emergency department, the patient was educated treatments and reasons to return to the emergency department based on their presumed diagnosis as noted above, they were advised to followup with a primary care physician in 2-3 days. Patient was agreeable to plan of care. *Note is created using voice recognition software and may contain spelling, syntax or grammatical errors. Laboratory 09/09/18 09/09/18 09/09/18 09:48 10:00 10:00 WBC 5.8 RBC 3.89 Hgb 12.5 Hct 37.1 MCV 95 MCH 32.2 MCHC 33.8 RDW 12.6 Plt Count 199 Seg Neutrophils % 63.5 Lymphocytes % 27.3 Monocytes % 6.5 Eosinophils % 2.3 Basophils % 0.4 Absolute Neutrophils 3.7 Absolute Lymphocytes 1.6 Absolute Monocytes 0.4 Absolute Eosinophils 0.1 Absolute Basophils 0.0 Sodium 140.1 Potassium 4.3 Chloride 105 Carbon Dioxide 30 Anion Gap 5 BUN 13 Creatinine 0.72 Est GFR ( Amer) > 60 Est GFR (Non-Af Amer) > 60 Glucose 109 Calcium 9.4 Total Bilirubin 0.4 Direct Bilirubin 0.1 Neonat Total Bilirubin Not Reportable Neonat Direct Bilirubin Not Reportable Neonat Indirect Bili Not Reportable AST 47 H ALT 82 H Alkaline Phosphatase 60 Total Protein 6.4 Albumin 4.0 Urine Color YELLOW Urine Appearance SLIGHTLY-CLOUDY Urine pH 6.0 Ur Specific [place] 1.006 Urine Protein NEGATIVE Urine Glucose (UA) NEGATIVE Urine Ketones NEGATIVE Urine Blood MODERATE H Urine Nitrite NEGATIVE Urine Bilirubin NEGATIVE Urine Urobilinogen NEGATIVE Ur Leukocyte Esterase MODERATE H Urine WBC (Auto) 7 Urine RBC (Auto) 1 Urine Bacteria (Auto) TRACE Squamous Epi Cells Auto 3 Urine Mucus (Auto) RARE Urine Ascorbic Acid NEGATIVE - Vital Signs Vital signs: Temp Pulse Resp BP Pulse Ox 97.7 F 72 16 116/64 98 09/09/18 11:31 09/09/18 11:31 09/09/18 11:31 09/09/18 11:31 09/09/18 11:31 - Laboratory Result Diagrams: 09/09/18 10:00 09/09/18 10:00 Laboratory results interpreted by me: 09/09/18 09/09/18 09:48 10:00 AST 47 H ALT 82 H Urine Blood MODERATE H Ur Leukocyte Esterase MODERATE H Discharge - Discharge Clinical Impression: Lightheadedness Condition: Stable Disposition: HOME, SELF-CARE Instructions: Near Syncopal Episode ([facility]) Additional Instructions: Please try to maintain your hydration by drinking at least 1-1/2-2 L of fluids daily, and eat small meals throughout the day, to help with your symptoms, I encourage you to follow-up with the women's health group as well, some of the symptoms may be early indicators of depression, although that is not a definitive diagnosis, and that is why I want you to follow-up with them. Referrals: MELANIA PETTY MD [Primary Care Provider] - Follow up in 3-5 days [facility] [Provider Group] - Follow up in 3-5 days
[2018-09-09 10:26] LABS: ABSOLUTE EOSINOPHILS # (AUTO) 0.1 10^3/uL (0.0-0.6); ABSOLUTE LYMPHOCYTES (AUTO) 1.6 10^3/uL (0.5-4.7); ABSOLUTE MONOCYTES (AUTO) 0.4 10^3/uL (0.1-1.4); ABSOLUTE NEUT (AUTO) 3.7 10^3/uL (1.7-8.2); BASOPHILS % (AUTO) 0.4 % (0-2); EOSINOPHILS % (AUTO) 2.3 % (0-6); HEMATOCRIT 37.1 % (36.0-47.0); HEMOGLOBIN 12.5 g/dL (12.0-15.5); LYMPHOCYTES % (AUTO) 27.3 % (13-45); MEAN CORPUSCULAR HEMOGLOBIN 32.2 pg (27.0-33.4); MEAN CORPUSCULAR HGB CONC 33.8 g/dL (32.0-36.0); MEAN CORPUSCULAR VOLUME 95 fl (80-97); MONOCYTES % (AUTO) 6.5 % (3-13); PLATELET COUNT 199 10^3/uL (150-450); RED BLOOD COUNT 3.89 10^6/uL (3.72-5.28); RED CELL DISTRIBUTION WIDTH 12.6 % (11.5-14.0); SEGMENTED NEUTROPHILS % (AUTO) 63.5 % (42-78); TOTAL CELLS COUNTED % (AUTO) 100 %; WHITE BLOOD COUNT 5.8 10^3/uL (4.0-10.5)
[2018-09-09 10:43] LABS: ALANINE AMINOTRANSFERASE 82 U/L (9-52); ALKALINE PHOSPHATASE 60 U/L (38-126); ANION GAP 5 (5-19); ASPARTATE AMINO TRANSFERASE 47 U/L (14-36); BILIRUBIN,DIRECT 0.1 mg/dL (0.0-0.4); BILIRUBIN,TOTAL 0.4 mg/dL (0.2-1.3); BLOOD UREA NITROGEN 13 mg/dL (7-20); CALCIUM 9.4 mg/dL (8.4-10.2); CARBON DIOXIDE 30 mmol/L (22-30); CHLORIDE 105 mmol/L (98-107); GLUCOSE 109 mg/dL (75-110); POTASSIUM 4.3 mmol/L (3.6-5.0); SODIUM 140.1 mmol/L (137-145); TOTAL PROTEIN 6.4 g/dL (6.3-8.2)
[2018-09-09 10:45] LABS: APPEARANCE,URINE SLIGHTLY-CLOUDY; BILIRUBIN,URINE NEGATIVE (NEGATIVE); COLOR,URINE YELLOW; GLUCOSE, URINE NEGATIVE (NEGATIVE); KETONES,URINE NEGATIVE (NEGATIVE); LEUKOCYTE ESTERASE,URINE MODERATE (NEGATIVE); NITRITE,URINE NEGATIVE (NEGATIVE); PROTEIN,URINE NEGATIVE (NEGATIVE); URINE SPECIFIC GRAVITY 1.006; UROBILINOGEN,URINE NEGATIVE mg/dL (<2.0)
[2018-09-09] MEDS ORDERED: ONDANSETRON ODT 4 MG TAB (6 TAB/ER DISP) PO PRN (11:14)
[2018-09-09 11:32] VITALS: BP 116/64
== END 2018-09-09 11:47 | disposition home or self-care (01) ==
LOC: ER 08:52
DX: R42 Dizziness and giddiness (principal); R53.1 Weakness; R63.0 Anorexia
CPT/HCPCS: 36415; 80053; 81001; 85025; 99284

== ENCOUNTER 2018-11-22 22:05 | Emergency (ER) | payer OTHER ==
--- NOTE | 2018-11-23 01:49 | ER Document Report ---
Addendum entered and electronically signed by JINJAEL SevillaRENATO 11/25/18 19:35: Course - Re-evaluation Re-evalutation: 11/25/18 19:32 I have contacted the patient and informed her that she does not need to take her penicillin that was prescribed to her because her culture did not show strep. She stated she feels better and she has been using antipyretics and salt water gargles at home with relief. I have advised her again to follow up with her PCP and see ENT if her tonsils continue to give her trouble. - Vital Signs Vital signs: Temp Pulse Resp BP Pulse Ox 98.1 F 68 16 114/64 98 11/23/18 02:16 11/23/18 02:16 11/23/18 02:16 11/23/18 02:16 11/23/18 02:16 Original Note: HPI - HPI Time Seen by Provider: 11/23/18 01:48 Pain Level: 5 Context: Patient is a 28-year-old female who presents emergency department with a chief complaint of a sore throat. She states that she has had body aches and she has been sore. Her symptoms started 2 days ago. She also states that she has some stinging. And has noted some exudate to her tonsils. She denies any past medical history area does not take any medications. She does have history of strep throat in the past. She took some ibuprofen around 2100 tonight, but states that her throat is still sore. - ROS Systems Reviewed and Negative: Yes All other systems reviewed and negative - CONSTITUTIONAL Notes: Body aches - EENT EENT: REPORTS: Sore Throat - for 2 days - NEURO Neurology: REPORTS: Headache - CARDIOVASCULAR Cardiovascular: DENIES: Chest pain - RESPIRATORY Respiratory: DENIES: Trouble Breathing, Coughing - REPRODUCTIVE Reproductive: DENIES: : - DERM Skin Color: Normal Skin Problems: None Past Medical History - Social History Smoking Status: Never Smoker Chew tobacco use (# tins/day): Yes Frequency of alcohol use: None Family History: Reviewed & Not Pertinent Patient has suicidal ideation: No Patient has homicidal ideation: No Renal/ Medical History: Denies: Hx Peritoneal Dialysis Vertical Provider Document - CONSTITUTIONAL Agree With Documented VS: Yes Exam Limitations: No Limitations General Appearance: No Apparent Distress - INFECTION CONTROL TRAVEL OUTSIDE OF THE [place] IN LAST 30 DAYS: No - HEENT HEENT: Atraumatic, Normocephalic, PERRLA, Pharyngeal Exudate, Pharyngeal Tenderness, Pharyngeal Erythema. negative: Tympanic Membrane Red, Tympanic Me mbrane Bulging - NECK Neck: Normal Inspection, Supple - RESPIRATORY Respiratory: Breath Sounds Normal - CARDIOVASCULAR Cardiovascular: Regular Rate, Regular Rhythm - MUSCULOSKELETAL/EXTREMETIES Musculoskeletal/Extremeties: FROM - NEURO Level of Consciousness: Awake, Alert, Appropriate - DERM Integumentary: Warm, Dry Course - Re-evaluation Re-evalutation: 11/23/18 02:33 Patient's rapid strep is negative at this time, but he has cervical lymphadenopathy and tonsillar exudate. I will give her a prescription for penicillin to go home with. I have instructed her to not take the medication until cultures have come back. I will give her a call in the next few days. If the test is positive, she will have her prescription filled. If it is negative then she will follow-up with her primary care provider. - Vital Signs Vital signs: Temp Pulse Resp BP Pulse Ox 98.5 F 18 99 11/22/18 22:31 11/22/18 22:31 11/22/18 22:31 Discharge - Discharge Clinical Impression: Sore throat Condition: Stable Disposition: HOME, SELF-CARE Instructions: Penicillin V K ([facility]) Additional Instructions: You were seen today in the emergency department for a sore throat. Your rapid strep test is negative, but it is being sent for culture to see if you have strep. If the strep test comes back positive, please fill your prescription. You will be called if it is positive. If it is negative, please do not fill the prescription. Make sure you drink plenty of fluids, take 600 mg of ibuprofen and 1000 mg Tylenol every 6 hours while you are having symptoms. Please follow- up with your primary care provider in regards to this visit. Prescriptions: Penicillin V Potassium [Penicillin Vk 500 mg Tablet] 500 mg PO BID #20 tablet
[2018-11-23] MEDS ORDERED: ACETAMINOPHEN 325 MG TABLET PO ONE (01:51)
[2018-11-23 02:17] VITALS: BP 114/64
== END 2018-11-23 03:20 | disposition home or self-care (01) ==
LOC: ER 22:05
DX: J02.9 Acute pharyngitis, unspecified (principal); M79.10 Myalgia, unspecified site
CPT/HCPCS: 87070; 87880; 99283

== ENCOUNTER 2018-11-28 06:07 | Emergency (ER) | payer OTHER ==
[2018-11-28] MEDS ORDERED: DEXAMETHASONE SOD PHOS INJ 10 MG/1 ML VIAL IM ONE (06:29)
--- NOTE | 2018-11-28 06:35 | ER Document Report ---
HPI - HPI Patient complains to provider of: sore throat Time Seen by Provider: 11/28/18 06:21 Pain Level: 5 Context: Patient is a 28-year-old female that comes emergency department for chief complaint of sore throat for the past week. She was seen here, placed on penicillin, states she was called and told she had a negative throat culture and was told to discontinue her penicillin. She denies fevers at any point. She denies cough, congestion, abdominal pain, nausea or vomiting. She states that she used to get this annually until she moved away from home and now is getting it here again. She denies any daily medications. She denies . - REPRODUCTIVE LMP: 11/03 Reproductive: DENIES: : Past Medical History - General Information source: Patient - Social History Smoking Status: Never Smoker Frequency of alcohol use: None Drug Abuse: None Lives with: Family Family History: Reviewed & Not Pertinent - Medical History Medical History: Negative Renal/ Medical History: Denies: Hx Peritoneal Dialysis Surgical Hx: Negative - Immunizations Immunizations up to date: Yes Hx Diphtheria, Pertussis, Tetanus Vaccination: Yes Vertical Provider Document - CONSTITUTIONAL General Appearance: WD/WN, No Apparent Distress - INFECTION CONTROL TRAVEL OUTSIDE OF THE [place] IN LAST 30 DAYS: No - HEENT HEENT: Atraumatic, Normocephalic. negative: Normal ENT Exam - There are a few exudates on the right tonsil, tonsils are mildly enlarged, uvula is normal, oral pharyngeal exam is normal otherwise, ENT exam is normal otherwise except for mild enlargement of the turbinates. - NECK Neck: Other - Minimal borderline anterior cervical adenopathy bilaterally - RESPIRATORY Respiratory: Breath Sounds Normal, No Respiratory Distress - CARDIOVASCULAR Cardiovascular: Regular Rate, Regular Rhythm - GI/ABDOMEN Gastrointestinal: Abdomen Soft, Abdomen Non-Tender - BACK Back: Normal Inspection - MUSCULOSKELETAL/EXTREMETIES Musculoskeletal/Extremeties: MAEW, FROM, Non-Tender - NEURO Level of Consciousness: Awake, Alert, Appropriate - DERM Integumentary: Warm, Dry, No Rash Course - Re-evaluation Re-evalutation: Patient is alert and well-appearing. She has not had any fevers. No abdominal pain or abnormality on exam suggesting splenomegaly. Because of her very specific recurrence of her symptoms, lack of fever, negative throat culture, I suspect there is an allergic component to this. Discussed with patient. She asks for an ENT referral. Provided with this. Placing on Renetta, given dexamethasone, discussed follow-up and return precautions. Patient states understanding and agreement. - Vital Signs Vital signs: Temp Pulse Resp BP Pulse Ox 98.3 F 71 14 131/71 H 98 11/28/18 06:15 11/28/18 06:15 11/28/18 06:15 11/28/18 06:15 11/28/18 06:15 Discharge - Discharge Clinical Impression: Pharyngitis Qualifiers: Pharyngitis/tonsillitis etiology: unspecified etiology Qualified Code(s): J02.9 - Acute pharyngitis, unspecified Condition: Stable Disposition: HOME, SELF-CARE Additional Instructions: Your culture for the throat was negative. My examination I suspect that you have allergic symptoms. You have been treated with dexamethasone for your swollen lymph nodes/tonsils, this should gradually help. I recommend that you take an [id number] daily antiallergy as well, see prescription. Follow-up with ENT as desired. See referral. Return if you worsen including difficulty breathing or swallowing, fever, or any other concerning or worsening symptoms. Prescriptions: Fexofenadine HCl [Renetta Allergy] 180 mg PO DAILY #30 tablet Referrals: RADHA JENSEN DO [ASSOCIATE] - Follow up as needed
[2018-11-28 07:16] VITALS: BP 119/80
== END 2018-11-28 07:16 | disposition home or self-care (01) ==
LOC: ER 06:07
DX: J02.9 Acute pharyngitis, unspecified (principal)
CPT/HCPCS: 99282; 96372; J1100

== ENCOUNTER 2019-05-25 20:05 | Emergency (ER) | payer OTHER ==
[2019-05-25 20:17] VITALS: BP 129/69
== END 2019-05-25 22:24 | disposition left against medical advice (07) ==
LOC: ER 20:05
DX: Z53.21 Procedure and treatment not carried out due to patient leaving prior to being seen by health care provider (principal)

== ENCOUNTER 2020-07-20 18:14 | Outpatient (CLI) | payer OTHER ==
[2020-07-20 19:10] LABS: APPEARANCE,URINE CLEAR; BILIRUBIN,URINE NEGATIVE (NEGATIVE); COLOR,URINE YELLOW; GLUCOSE, URINE NEGATIVE (NEGATIVE); KETONES,URINE NEGATIVE (NEGATIVE); LEUKOCYTE ESTERASE,URINE NEGATIVE (NEGATIVE); NITRITE,URINE NEGATIVE (NEGATIVE); PROTEIN,URINE NEGATIVE (NEGATIVE); URINE SPECIFIC GRAVITY 1.014; UROBILINOGEN,URINE NEGATIVE mg/dL (<2.0)
--- NOTE | 2020-07-20 19:59 | Non Stress Test Report ---
Non Stress Test Datetime Report Generated by CPN: 07/20/2020 19:59 INDICATION Indication for Study (NST) Other: Ordered by Provider MONITORING Monitor Explained: Monitor Explained; Test Explained; Patient Verbalized Understanding Time on Monitor: 07/20/2020 18:39 Time off Monitor: 07/20/2020 19:42 NST Duration: 63 NST INTERVENTIONS NST Interventions: PO Hydration Physician Notified NST: Dr. Mayfield BABY A: [id number] BABY A Movement : Present Contraction Frequency : none FHR Baseline : 135 Accelerations : 15X15 Decelerations : None Variability : Moderate 6-25bpm NST Review: Meets Criteria for Reactive NST NST Review: Meets Criteria for Reactive NST NST Review and Verified By : Dolly Jarvis RN NST Results: Reactive NST REPORT Report Trigger: Send Report
[2020-07-20 20:21] LABS: URINE AMPHETAMINES SCREEN NEGATIVE; URINE BARBITURATES SCREEN NEGATIVE; URINE BENZODIAZEPINES SCREEN NEGATIVE; URINE COCAINE SCREEN NEGATIVE; URINE MARIJUANA (THC) SCREEN NEGATIVE; URINE METHADONE SCREEN NEGATIVE; URINE PHENCYCLIDINE SCREEN NEGATIVE
== END 2020-07-20 19:47 | disposition home or self-care (01) ==
LOC: LC 18:14
PROVIDERS: ATTEND Obstetrics & Gynecology Gynecology
DX: O47.03 False labor before 37 completed weeks of gestation, third trimester (principal); Z3A.30 30 weeks gestation of pregnancy
CPT/HCPCS: 80307; 81001

== ENCOUNTER 2020-08-06 12:18 | Outpatient (CLI) | payer OTHER ==
[2020-08-06 12:56] LABS: APPEARANCE,URINE CLEAR; BILIRUBIN,URINE NEGATIVE (NEGATIVE); COLOR,URINE STRAW; GLUCOSE, URINE NEGATIVE (NEGATIVE); KETONES,URINE NEGATIVE (NEGATIVE); LEUKOCYTE ESTERASE,URINE NEGATIVE (NEGATIVE); NITRITE,URINE NEGATIVE (NEGATIVE); PROTEIN,URINE NEGATIVE (NEGATIVE); URINE SPECIFIC GRAVITY 1.005; UROBILINOGEN,URINE NEGATIVE mg/dL (<2.0)
[2020-08-06 13:26] LABS: URINE AMPHETAMINES SCREEN NEGATIVE; URINE BARBITURATES SCREEN NEGATIVE; URINE BENZODIAZEPINES SCREEN NEGATIVE; URINE COCAINE SCREEN NEGATIVE; URINE MARIJUANA (THC) SCREEN NEGATIVE; URINE METHADONE SCREEN NEGATIVE; URINE PHENCYCLIDINE SCREEN NEGATIVE
--- NOTE | 2020-08-06 14:42 | RADIOLOGY REPORT (SQ) ---
EXAM DESCRIPTION: U/S OB 14+ TA/1 GEST W/DOPPLER IMAGES COMPLETED DATE/TIME: 08/06/2020 2:11 pm REASON FOR STUDY: wellbeing RODRIGO COMPARISON: None. TECHNIQUE: Limited transabdominal grayscale ultrasound for evaluation of specific requested obstetri kvng parameters. LIMITATIONS: None. FINDINGS: CERVICAL LENGTH: 3.5 cm Closed. RODRIGO: Total 8 cm, largest pocket 3.1 cm. FHR: 171 beats per minute. PRESENTATION: Cephalic. PLACENTA: Fundal grade 1 ANATOMY: Not assessed OTHER: Estimated gestational age by multiple measurements 34 weeks 3 days, estimated due date 1 IMPRESSION: LIMITED OBSTETRICAL ULTRASOUND WITH MEASURED PARAMETERS DELINEATED ABOVE. Trimester of : Third trimester - 28 weeks to delivery. TECHNICAL DOCUMENTATION: JOB ID: [id number] 2010 [employer]- All Rights Reserved Reading location - IP/workstation name: [id number]
--- NOTE | 2020-08-06 15:53 | Non Stress Test Report ---
Non Stress Test Datetime Report Generated by CPN: 08/06/2020 15:53 DEMOGRAPHIC EGA NST: 33.2 MONITORING Monitor Explained: Monitor Explained; Test Explained; Patient Verbalized Understanding Time on Monitor: 08/06/2020 12:31 Time off Monitor: 08/06/2020 14:25 NST Duration: 114 NST INTERVENTIONS NST Interventions: PO Hydration Physician Notified NST: Dr. Engle BABY A: [id number] BABY A Movement : Present Contraction Frequency : none FHR Baseline : 135 Accelerations : 15X15 Decelerations : None Decelerations : None Variability : Moderate 6-25bpm NST Review: Meets Criteria for Reactive NST NST Review and Verified By : Jose Leos RN NST Results: Reactive NST REPORT Report Trigger: Send Report
== END 2020-08-06 14:22 | disposition home or self-care (01) ==
LOC: LC 12:18
PROVIDERS: ATTEND Obstetrics & Gynecology
DX: O47.03 False labor before 37 completed weeks of gestation, third trimester (principal); Z3A.33 33 weeks gestation of pregnancy
CPT/HCPCS: 76805; 80307; 81005; 84112; 93976

== ENCOUNTER 2020-09-11 19:12 | Outpatient (CLI) | payer OTHER ==
[2020-09-11 20:28] LABS: APPEARANCE,URINE CLEAR; BILIRUBIN,URINE NEGATIVE (NEGATIVE); COLOR,URINE STRAW; GLUCOSE, URINE NEGATIVE (NEGATIVE); KETONES,URINE NEGATIVE (NEGATIVE); LEUKOCYTE ESTERASE,URINE NEGATIVE (NEGATIVE); NITRITE,URINE NEGATIVE (NEGATIVE); PROTEIN,URINE NEGATIVE (NEGATIVE); URINE SPECIFIC GRAVITY 1.003; UROBILINOGEN,URINE NEGATIVE mg/dL (<2.0)
[2020-09-11 20:45] LABS: URINE AMPHETAMINES SCREEN NEGATIVE; URINE BARBITURATES SCREEN NEGATIVE; URINE BENZODIAZEPINES SCREEN NEGATIVE; URINE COCAINE SCREEN NEGATIVE; URINE MARIJUANA (THC) SCREEN NEGATIVE; URINE METHADONE SCREEN NEGATIVE; URINE PHENCYCLIDINE SCREEN NEGATIVE
[2020-09-11] MEDS ORDERED: ACETAMINOPHEN 325 MG TABLET PO ONE (20:51)
[2020-09-11] MEDS ORDERED: ACETAMINOPHEN 325 MG TABLET ONE (20:55)
--- NOTE | 2020-09-11 21:05 | Non Stress Test Report ---
Non Stress Test Datetime Report Generated by CPN: 09/11/2020 21:05 DEMOGRAPHIC EGA NST: 38.3 INDICATION Indication for Study (NST) Other: lc MONITORING Monitor Explained: Monitor Explained; Test Explained; Patient Verbalized Understanding Time on Monitor: 09/11/2020 19:34 NST INTERVENTIONS NST Interventions: PO Hydration; Reposition Patient Physician Notified NST: Dr Apolinar BABY A: [id number] BABY A Movement : Present Contraction Frequency : rare FHR Baseline : 135 Accelerations : 15X15 Decelerations : None Variability : Moderate 6-25bpm NST Review: Meets Criteria for Reactive NST NST Review and Verified By : HAO JimenezT Results: Reactive NST REPORT Report Trigger: Send Report
== END 2020-09-11 21:11 | disposition home or self-care (01) ==
LOC: LC 19:12
PROVIDERS: ATTEND Obstetrics & Gynecology
DX: O47.1 False labor at or after 37 completed weeks of gestation (principal); Z3A.38 38 weeks gestation of pregnancy
CPT/HCPCS: 59025; 80307; 81001

== ENCOUNTER 2020-09-15 09:02 | Outpatient (CLI) | payer OTHER ==
[2020-09-15 09:31] LABS: APPEARANCE,URINE CLEAR; BILIRUBIN,URINE NEGATIVE (NEGATIVE); COLOR,URINE COLORLESS; GLUCOSE, URINE NEGATIVE (NEGATIVE); KETONES,URINE NEGATIVE (NEGATIVE); LEUKOCYTE ESTERASE,URINE NEGATIVE (NEGATIVE); NITRITE,URINE NEGATIVE (NEGATIVE); PROTEIN,URINE NEGATIVE (NEGATIVE); URINE SPECIFIC GRAVITY 1.002; UROBILINOGEN,URINE NEGATIVE mg/dL (<2.0)
[2020-09-15 10:00] LABS: URINE AMPHETAMINES SCREEN NEGATIVE; URINE BARBITURATES SCREEN NEGATIVE; URINE BENZODIAZEPINES SCREEN NEGATIVE; URINE COCAINE SCREEN NEGATIVE; URINE MARIJUANA (THC) SCREEN NEGATIVE; URINE METHADONE SCREEN NEGATIVE; URINE PHENCYCLIDINE SCREEN NEGATIVE
--- NOTE | 2020-09-15 10:11 | Non Stress Test Report ---
Non Stress Test Datetime Report Generated by CPN: 09/15/2020 10:11 DEMOGRAPHIC EGA NST: 39.0 INDICATION Indication for Study (NST) Other: possible ROM VITAL SIGNS Temperature - NST: 97.3 Pulse - NST: 82 RESP - NST: 18 NBPSYS NST: 117 NBPDIA NST: 59 MONITORING Monitor Explained: Monitor Explained; Patient Verbalized Understanding Time on Monitor: 09/15/2020 09:16 Time off Monitor: 09/15/2020 19:54 NST Duration: 638 NST INTERVENTIONS NST Interventions: PO Hydration; Reposition Patient Physician Notified NST: Marquise Dailey CNM BABY A: [id number] Movement : Present Contraction Frequency : 0 FHR Baseline : 140 Accelerations : 15X15 Variability : Moderate 6-25bpm NST Review: Meets Criteria for Reactive NST NST Review and Verified By : Joyce Vera RN NST Results: Reactive NST REPORT Report Trigger: Send Report
== END 2020-09-15 09:59 | disposition home or self-care (01) ==
LOC: LC 09:02
PROVIDERS: ATTEND Obstetrics & Gynecology Gynecology
DX: O47.1 False labor at or after 37 completed weeks of gestation (principal); Z3A.39 39 weeks gestation of pregnancy
CPT/HCPCS: 80307; 81005; 84112

== ENCOUNTER 2020-09-21 07:30 | Inpatient (IN) | payer OTHER ==
[2020-09-21] MEDS ORDERED: PENICILLIN G-K 5 MILLION UNIT VIAL ONE (07:43)
[2020-09-21] MEDS ORDERED: LIDOCAINE 1% INJ-PF (10 MG/ML) 30 ML SDV ONE (07:56)
[2020-09-21] MEDS ORDERED: OXYTOCIN/0.9 % SODIUM CHLORIDE 30 UNIT/500 ML RTUINJ ONE (07:56)
[2020-09-21] MEDS ORDERED: MISOPROSTOL 0.2 MG TABLET ONE (07:56)
[2020-09-21] MEDS ORDERED: OXYTOCIN 10 UNIT/ML VIAL ONE (07:56)
--- NOTE | 2020-09-21 08:20 | Admission Physical ---
Datetime Report Generated by CPN: 09/21/2020 08:19 CURRENT ADMISSION Hx Assessment: The History has been Reviewed and is Current Chief Complaint: Uterine Contractions Admit Impression : Term, Intrauterine ; Active Labor Admit Plan: Admit to Unit; Initiate Labor Protocol ALLERGIES Medication Allergies: No Medication Allergies: No Known Allergies (09/15/2020) Latex: No Latex Allergies OBSTETRICAL HISTORY EDC: 09/22/2020 00:00 : 4 Para: 3 Term: 2 : 1 SAB: 0 IAB: 1 Ectopic: 0 Livin Cesareans: 0 VBACs: 0 Multiple Births: 0 Gestational Diabetes: No Rh Sensitization: No Incompetent Cervix: No MARLON: No Infertility: No ART Treatment: No Uterine Anomaly: No IUGR: No Hx Previous C/S: No Macrosomia: No Hx Loss/Stillborn: No PIH: No Hx : Yes Placenta Previa/Abruption: No Depression/PP Depression: No PTL/PROM: No Post Hemorrhage: No Current Procedures: Ultrasound; NST Obstetrical History Comments: G1- 11/06/2010 IOL at 27 weeks for hydrocephalus - after delivery, delivered in [place] G2- 05/03/2016 ,40 weeks, BB, 7lb 0oz, delivered at [facility] G3- 08/14/2018 , 40.2 weeks, BG, epidural, delivered at [facility] G4- current MEDICAL HISTORY Diabetes: No Blood Transfusion: No Pulmonary Disease (Asthma, TB): No Breast Disease: No 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 Heart Disease: No Hosp/Surgery: Yes Autoimmune Disorder: No Anesthetic Complications: No Kidney Disease: No Abnormal Pap Smear: No Neuro/Epilepsy: No Psychiatric Disorders: No Other Medical Diseases: No Hepatitis/Liver Disease: No Significant Family History: No Varicosities/Phlebitis: No Trauma/Violence : No Thyroid Dysfunction: No Medical History Comments: 2012 wisdom teeth extraction, childbirth x3 INFECTIOUS HISTORY Gonorrhea: No Genital Herpes: No Chlamydia: No Tuberculosis: No Syphilis: No Hepatitis: No HIV/AIDS Exposure: No Rash or Viral Illness: No HPV: No PHYSICAL EXAM General: Normal HEENT: Normal Neurologic: Normal Thyroid: Normal Heart: Normal Lungs: Normal Breast: Normal Back: Normal Abdomen: Normal Genitourinary Exam: Normal Extremities: Normal DTRs: Normal Pelvic Type: Adequate Vital Signs: Reviewed; Within Normal Limits VAGINAL EXAM Dilatation: 5 Effacement: 80 Station: -1 Contraction Comments: contractions every 3-4 minutes MEMBRANES Membranes: Intact FETUS A EGA: 39.6 Monitoring: External US FHR- Baseline: 130 Variability: Moderate 6-25bpm Accelerations: 15X15 Decelerations: None FHR Category: Category I Presentation: Vertex Admit Comment: at 39.6 wks EGA in active labor -Admit to LDR -NPO and IVFs: LR at 125 cc/hr after 1 liter bolus LR -CEFM and toco -GBS pos, PCN for GBS prophylaxis -Hx of 3 prior -anticipate INFORMED CONSENT Informed Consent Obtained: Vaginal Delivery; Section Delivery; Vacuum/Forceps Assist; Risks, Benefits and Alternatives Discussed Signature: with User ID: Laura : with User ID: Laura
[2020-09-21] MEDS ORDERED: PENICILLIN G POTASSIUM 5,000,000 UNIT in DEXTROSE 5%-WATER 100 ML IV ONE (08:30)
[2020-09-21] MEDS ORDERED: RINGERS SOLUTION,LACTATED 1,000 ML IV PRN (08:30)
[2020-09-21 09:20] LABS: URINE AMPHETAMINES SCREEN NEGATIVE; URINE BARBITURATES SCREEN NEGATIVE; URINE BENZODIAZEPINES SCREEN NEGATIVE; URINE COCAINE SCREEN NEGATIVE; URINE MARIJUANA (THC) SCREEN NEGATIVE; URINE METHADONE SCREEN NEGATIVE; URINE PHENCYCLIDINE SCREEN NEGATIVE
[2020-09-21] MEDS ORDERED: MAGNESIUM HYDROXIDE SUSP 30 ML UDCUP PO PRN (09:30)
[2020-09-21] MEDS ORDERED: ACETAMINOPHEN 325 MG TABLET PO PRN (09:30)
[2020-09-21] MEDS ORDERED: VARICELLA VACC/PF (1350 UNIT/0.5 ML) 0.5 ML VIAL SUBCUT PRN (09:30)
[2020-09-21] MEDS ORDERED: BENZOCAINE/MENTHOL AEROSOL SPRAY 56 ML TOP PRN (09:30)
[2020-09-21] MEDS ORDERED: DIPH/PERTUSS(ACELL)/TETANUS VAC/PF 0.5 ML SYR (>=10YO) IM PRN (09:30)
[2020-09-21] MEDS ORDERED: FAMOTIDINE 20 MG TABLET PO PRN (09:30)
[2020-09-21] MEDS ORDERED: GLYCERIN/WITCH HAZEL LEAF 1 EACH MED..WIPE TP PRN (09:30)
[2020-09-21] MEDS ORDERED: OXYTOCIN/0.9 % SODIUM CHLORIDE 30 UNIT/500 ML RTUINJ IV PRN (09:30)
[2020-09-21] MEDS ORDERED: DIBUCAINE 1% OINTMENT 28 GM TP PRN (09:30)
[2020-09-21] MEDS ORDERED: MAG HYDROX/AL HYDROX/SIMETH SUSP 30 ML UDCUP PO PRN (09:30)
[2020-09-21] MEDS ORDERED: ACETAMINOPHEN 650 MG SUPP.RECT PR PRN (09:30)
[2020-09-21] MEDS ORDERED: MEASLES,MUMPS&RUBELLA VACC/PF 0.5 ML VIAL SUBCUT PRN (09:30)
[2020-09-21] MEDS ORDERED: DIPHENHYDRAMINE HCL 25 MG CAPSULE PO PRN (09:30)
[2020-09-21] MEDS ORDERED: ACETAMINOPHEN WITH CODEINE #3 TABLET PO PRN ×2 (09:30)
[2020-09-21] MEDS ORDERED: PSEUDOEPHEDRINE HCL 30 MG TABLET PO PRN (09:30)
[2020-09-21] MEDS ORDERED: ZOLPIDEM TARTRATE 5 MG TABLET PO PRN (09:30)
[2020-09-21] MEDS ORDERED: IBUPROFEN 800 MG TABLET ONE (10:22)
[2020-09-21] MEDS ORDERED: BENZOCAINE/MENTHOL AEROSOL SPRAY 56 ML ONE (10:22)
[2020-09-21] MEDS: IBUPROFEN 800 MG TABLET PO SCH ×3 (10:26→21:10)
[2020-09-21 10:53] LABS: HEMATOCRIT 35.6 % (36.0-47.0); HEMOGLOBIN 12.2 g/dL (12.0-15.5); MEAN CORPUSCULAR HGB CONC 34.2 g/dL (32.0-36.0); MEAN CORPUSCULAR VOLUME 94 fl (80-97); RED BLOOD COUNT 3.81 10^6/uL (3.72-5.28); RED CELL DISTRIBUTION WIDTH 13.7 % (11.5-14.0); WHITE BLOOD COUNT 16.8 10^3/uL (4.0-10.5)
[2020-09-21 11:22] LABS: ABSOLUTE LYMPHOCYTES# (MANUAL) 0.7 10^3/uL (0.5-4.7); ABSOLUTE MONOCYTES # (MANUAL) 0.5 10^3/uL (0.1-1.4); BASOPHILS % (MANUAL) 0 % (0-2); EOSINOPHILS % (MANUAL) 0 % (0-6); LYMPHOCYTES % (MANUAL) 4 % (13-45); MONOCYTES % (MANUAL) 3 % (3-13); SEGMENTED NEUTROPHILS % (MAN) 93 % (42-78); TOTAL CELLS COUNTED 100
[2020-09-21 11:23] LABS: PLATELET CLUMPS PRESENT; PLATELET COMMENT DECREASED; PLATELET COUNT 102 10^3/uL (150-450); RBC MORPHOLOGY COMMENT NORMO-CYTIC/CHROMIC
[2020-09-21] MEDS ORDERED: PENICILLIN G POTASSIUM 2,500,000 UNIT in DEXTROSE 5%-WATER 50 ML IV SCH (12:32)
[2020-09-21] MEDS: FERROUS SULFATE 325 MG TABLET PO SCH ×2 (15:07→17:28)
[2020-09-21] MEDS: DOCUSATE SODIUM 100 MG CAPSULE PO SCH ×2 (15:07→17:28)
[2020-09-21] MEDS: PRENATAL VITAMIN W DHA CAPSULE PO SCH (15:08)
[2020-09-21] MEDS: SENNOSIDES/DOCUSATE 8.6-50 MG 1 EACH TABLET PO SCH (15:08)
[2020-09-22] MEDS: IBUPROFEN 800 MG TABLET PO SCH ×3 (05:08→22:49)
[2020-09-22 07:12] LABS: HEMATOCRIT 33.7 % (36.0-47.0); HEMOGLOBIN 11.5 g/dL (12.0-15.5); MEAN CORPUSCULAR HEMOGLOBIN 32.4 pg (27.0-33.4); MEAN CORPUSCULAR HGB CONC 34.1 g/dL (32.0-36.0); MEAN CORPUSCULAR VOLUME 95 fl (80-97); PLATELET COUNT 101 10^3/uL (150-450); RED BLOOD COUNT 3.55 10^6/uL (3.72-5.28); RED CELL DISTRIBUTION WIDTH 13.9 % (11.5-14.0); WHITE BLOOD COUNT 9.8 10^3/uL (4.0-10.5)
[2020-09-22] MEDS: SENNOSIDES/DOCUSATE 8.6-50 MG 1 EACH TABLET PO SCH (10:40)
[2020-09-22] MEDS: PRENATAL VITAMIN W DHA CAPSULE PO SCH (10:40)
[2020-09-22] MEDS: FERROUS SULFATE 325 MG TABLET PO SCH ×2 (10:40→18:30)
[2020-09-22] MEDS: DOCUSATE SODIUM 100 MG CAPSULE PO SCH ×2 (10:41→18:30)
--- NOTE | 2020-09-22 10:42 | PDOC PROGRESS REPORT ---
Subjective-OB Progress Note for:: 09/22/20 - PP day #1, doing well, no complaints, UOB, voiding, O negative, Rubella Immune, Physical Exam (OB) Vital Signs: Temp Pulse Resp BP Pulse Ox 98.0 F 69 19 121/57 L 100 09/22/20 07:48 09/22/20 07:48 09/22/20 07:48 09/22/20 07:48 09/22/20 07:48 Intake & Output 09/21/20 09/22/20 09/23/20 06:59 06:59 06:59 Intake Total 300 Balance 300 Weight 117.9 kg - General General Appearance: Appears well, Alert - PIH/Pre-Eclampsia Clonus: Negative Headache: Absent Epigastric Pain: No Visual Changes: No - Maternal Morbidity 59. Maternal Morbidity (serious complications experinced by the mother associated with labor and delivery: None of the above - Lochia Lochia Amount: Small 10-25 ml Lochia Color: Rubra/Red - Abdomen Description: Soft, Round Hernia Present: No Fundal Description: Firm, Midline Fundal Height: u/u - u/2 - Respiratory Respiratory Status: No respiratory distress - Abdominal Distension: No distension Tenderness: Nontender - Genitourinary Genitourinary Note: voiding - Extremities Upper extremity: Normal inspection Lower extremities: Normal inspection - Neurological Cognition: Normal Orientation: AAOx4 - Psychological Associated symptoms: Normal affect, Normal mood - Skin Skin Temperature: Warm Skin Moisture: Dry Objective-Diagnostic Laboratory: 09/22/20 06:29 09/21/20 09/21/20 09/22/20 09:08 10:38 06:29 WBC 16.8 H 9.8 RBC 3.81 3.55 L Hgb 12.2 11.5 L Hct 35.6 L 33.7 L MCV 94 95 MCH 32.0 32.4 MCHC 34.2 34.1 RDW 13.7 13.9 Plt Count 102 L 101 L Seg Neutrophils % Not Reportable Blood Type O NEGATIVE Antibody Screen POSITIVE 09/22/20 06:29 WBC RBC Hgb Hct MCV MCH MCHC RDW Plt Count Seg Neutrophils % Blood Type O NEGATIVE Antibody Screen Assessment and Plan(PN) - Assessment and Plan (1) Active labor at term Is this a current diagnosis for this admission?: Yes (2) Vaginal delivery Is this a current diagnosis for this admission?: Yes (3) Compound presentation of fetus Qualifiers: Fetus number: single or unspecified fetus Is this a current diagnosis for this admission?: Yes Plan:: routine PP care, ambulation encouraged - Time Spent with Patient Time with patient: Less than 15 minutes Medications reviewed and adjusted accordingly: Yes - Disposition Anticipated Discharge Disposition: Home, Self Care Anticipated Discharge Timeframe: within 24 hours
[2020-09-23] MEDS: IBUPROFEN 800 MG TABLET PO SCH (05:54)
[2020-09-23 07:52] VITALS: BP 126/61
--- NOTE | 2020-09-23 08:57 | PDOC DISCHARGE SUMMARY ---
Impression - Admit/DC Date/PCP Admission Date/Primary Care Provider: 09/21/20 07:48 [facility] Discharge Date: 09/23/20 - PP day #2, doing well, O negative, needs Rhogam prior to d/c home. - Discharge Diagnosis (1) Active labor at term Is this a current diagnosis for this admission?: Yes (2) Vaginal delivery Is this a current diagnosis for this admission?: Yes (3) Compound presentation of fetus Is this a current diagnosis for this admission?: Yes - Additional Information Resuscitation Status: Full Code Discharge Diet: As Tolerated, Regular Discharge Activity: Activity As Tolerated, No Lifting Over 10 Pounds, Pelvic Rest Referrals: [facility] [Primary Care [facility]] - Prescriptions: Ibuprofen [Motrin 800 mg Tablet] 800 mg PO Q8 #60 tablet Home Medications: Prenat 115/Iron Fum/Folic/Dss [ 19 Tablet] 1 each PO DAILY 07/20/20 Ibuprofen [Motrin 800 mg Tablet] 800 mg PO Q8 #60 tablet 09/23/20 HPI Reason(s) for Admission: Onset of Labor Procedures: Ultrasound Intrapartum Procedure(s): Spontaneous Vaginal Delivery Hospital Course 59. Maternal Morbidity (serious complications experinced by the mother associated with labor and delivery: None of the above Results Laboratory Results: WBC 9.8 10^3/uL (4.0-10.5) 09/22/20 06:29 RBC 3.55 10^6/uL (3.72-5.28) L 09/22/20 06:29 Hgb 11.5 g/dL (12.0-15.5) L 09/22/20 06:29 Hct 33.7 % (36.0-47.0) L 09/22/20 06:29 MCV 95 fl (80-97) 09/22/20 06:29 MCH 32.4 pg (27.0-33.4) 09/22/20 06:29 MCHC 34.1 g/dL (32.0-36.0) 09/22/20 06:29 RDW 13.9 % (11.5-14.0) 09/22/20 06:29 Plt Count 101 10^3/uL (150-450) L 09/22/20 06:29 Lymph % (Auto) Not Reportable 09/21/20 10:38 [place] % (Auto) Not Reportable 09/21/20 10:38 Eos % (Auto) Not Reportable 09/21/20 10:38 Baso % (Auto) Not Reportable 09/21/20 10:38 Absolute Neuts (auto) Not Reportable 09/21/20 10:38 Absolute Lymphs (auto) Not Reportable 09/21/20 10:38 Absolute Monos (auto) Not Reportable 09/21/20 10:38 Absolute Eos (auto) Not Reportable 09/21/20 10:38 Absolute Basos (auto) Not Reportable 09/21/20 10:38 Total Counted 100 09/21/20 10:38 Seg Neutrophils % Not Reportable 09/21/20 10:38 Seg Neuts % (Manual) 93 % (42-78) H 09/21/20 10:38 Lymphocytes % (Manual) 4 % (13-45) L 09/21/20 10:38 Monocytes % (Manual) 3 % (3-13) 09/21/20 10:38 Eosinophils % (Manual) 0 % (0-6) 09/21/20 10:38 Basophils % (Manual) 0 % (0-2) 09/21/20 10:38 Abs Neuts (Manual) 15.6 10^3/uL (1.7-8.2) H 09/21/20 10:38 Abs Lymphs (Manual) 0.7 10^3/uL (0.5-4.7) 09/21/20 10:38 Abs Monocytes (Manual) 0.5 10^3/uL (0.1-1.4) 09/21/20 10:38 Absolute Eos (Manual) 0.0 10^3/uL (0.0-0.6) 09/21/20 10:38 Abs Basophils (Manual) 0.0 10^3/uL (0.0-0.2) 09/21/20 10:38 Platelet Estimate Cancelled 09/21/20 09:08 Clumped Platelets PRESENT 09/21/20 10:38 Platelet Comment DECREASED 09/21/20 10:38 RBC Morph Comment NORMO-CYTIC/CHROMIC 09/21/20 10:38 Urine Opiates Screen NEGATIVE 09/21/20 07:37 Urine Methadone Screen NEGATIVE 09/21/20 07:37 Ur Barbiturates Screen NEGATIVE 09/21/20 07:37 Ur Phencyclidine Scrn NEGATIVE 09/21/20 07:37 Ur Amphetamines Screen NEGATIVE 09/21/20 07:37 U Benzodiazepines Scrn NEGATIVE 09/21/20 07:37 Urine Cocaine Screen NEGATIVE 09/21/20 07:37 U Marijuana (THC) Screen NEGATIVE 09/21/20 07:37 RPR NONREACTIVE (NONREACTIVE) 09/21/20 09:08 Slides for Path Review Cancelled 09/21/20 09:08 Blood Type O NEGATIVE 09/22/20 06:29 Antibody Screen POSITIVE 09/21/20 09:08 Antibody Identification RHOGAM INDUCED ANTI-D 09/21/20 09:08 Screen NEGATIVE 09/22/20 06:29 Plan Plan of Treatment: d/c home. f/up with [facility] in 4 wks for PP check Time Spent: Less than 30 Minutes
[2020-09-23] MEDS: FERROUS SULFATE 325 MG TABLET PO SCH (10:26)
[2020-09-23] MEDS: DOCUSATE SODIUM 100 MG CAPSULE PO SCH (10:26)
[2020-09-23] MEDS: PRENATAL VITAMIN W DHA CAPSULE PO SCH (10:26)
[2020-09-23] MEDS: SENNOSIDES/DOCUSATE 8.6-50 MG 1 EACH TABLET PO SCH (10:26)
--- NOTE | 2020-09-26 06:51 | Delivery Summary ---
Del Sum A-C Datetime Report Generated by CPN: 09/26/2020 06:50 DELIVERY PERSONNEL DELIVERY PERSONNEL: [id number] Delivery Doctor:: Tamar Dailey CNM Nurse Crane Helper Certified:: Tamar Dailey CNM Labor and Delivery Nurse:: Milana Vera RNpre k teacher Nurse:: GARIMA Dominguez Nursery Nurse:: HAO Hernandez Tech/MOBILE QA TESTER: [facility], FLUORESCENT SOLUTION MIXER MATERNAL INFORMATION Delivery Anesthesia: None Medications After Delivery: Pitocin Bolus-Please Comment; Pitocin 30 Units in 500ml NS/D5W Estimated Blood Loss (ml): 150 Delivery QBL: 150 Maternal Complications: None Provider Comments: MARYSOL VIABLE MALE INFANT WITH SPONTANEOUS CRY. CORD DOUBLE CLAMPED AND CUT. SPONTANEOUS INTACT PLACENTA WITH 3VC. NO LACERATIONS. NURSERY RN PRESENT FOR DELIVER D/T MECONIUM STAINED FLUID. MOTHER AND INFANT STABLE IN L_D#5. LABOR SUMMARY EDC: 09/22/2020 00:00 No. Babies in Womb: 1 Attempted: No Labor Anesthesia: None LABOR INFORMATION Reason for Induction: Not Applicable Onset of Labor: 09/21/2020 04:40 Complete Dilatation: 09/21/2020 08:29 Oxytocin: N/A Group B Beta Strep: Positive Antibiotics # of Doses: 1 Antibiotics Time of Last Dose: 09/21/2020 07:57 Name of Antibiotic Given: Penicillin Steroids Given: None Reason Steroids Not Administered: Not Applicable MEMBRANES Membranes Rupture Method: Artificial Rupture of Membranes: 09/21/2020 08:29 Length of Rupture (hr): 0.35 Amniotic Fluid Color: Light Meconium Amniotic Fluid Amount: Moderate Amniotic Fluid Odor: Normal STAGES OF LABOR Stage 1 hr: 3 Stage 1 min: 49 Stage 2 hr: 0 Stage 2 min: 21 Stage 3 hr: 0 Stage 3 min: 13 Total Time in Labor hr: 4 Total Time in Labor min: 23 VAGINAL DELIVERY Episiotomy: None Laceration #1: None Laceration Repair: Not Applicable Sponge Count Correct: N/A Sharps Count Correct: N/A CSECTION DELIVERY Primary Indication: N/A Secondary Indication: N/A CSection Incidence: N/A Labor: N/A Elective: N/A CSection Incision: N/A BABY A INFORMATION Infant Delivery Date/Time: 09/21/2020 08:50 Method of Delivery: Vaginal Nurse Controlled Delivery: No Born in Route : No : N/A Forceps: N/A Vacuum Extraction: N/A Shoulder Dystocia : No PRESENTATION/POSITION BABY A Presentation: Cephalic Cephalic Presentation: Vertex Vertex Position: Right Occipital Anterior Breech Presentation: N/A PLACENTA INFORMATION BABY A Placenta Delivery Time : 09/21/2020 09:03 Placenta Method of Delivery: Spontaneous Placenta Status: Delivered SCORES BABY A Heart Rate 1 min: >100 bpm Resp Effort 1 min: Good Cry Reflex Irritability 1 min: Cough or Sneeze or Pulls Away Muscle Tone 1 min: Active Motion Color 1 min: Blue/Pale Resuscitation Effort 1 min: Tactile Stimulation SCORE 1 MIN: 8 Heart Rate 5 min: >100 bpm Resp Effort 5 min: Good Cry Reflex Irritability 5 min: Cough or Sneeze or Pulls Away Muscle Tone 5 min: Active Motion Color 5 min: Body [place], Extremities Blue Resuscitation Effort 5 min: N/A SCORE 5 MIN: 9 Resuscitation Effort 10 min: N/A INFORMATION BABY A Gestational Age at Delivery: 39.6 Gestational Status: Full Term- 39- 40.6 Weeks Infant Outcome : Liveborn Condition : Stable Sex: Male IDENTIFICATION BABY A Verification Date/Time: 09/21/2020 09:10 ID Band Number: [id number] Mother's Name Verified: Yes RN Verifying Infant: LAlma Vera, RN Additional Verifying Personnel: D. Jyoti CORD INFORMATION BABY A No. Cord Vessels: 3 Nuchal Cord : N/A Cord Blood Taken: Yes-For Eval (Mom's Blood Type - or O+) Suction: None ASSESSMENT BABY A Infant Complications: Meconium Physical Findings at Delivery: Within Normal Limits Infant Respirations: Appears Normal Skin to Skin: Yes Market Specialist/ALS Called : No Care By: Cassi Carrillo Transferred To: Remains with Mother BABY B INFORMATION : N/A SIGNATURES Assignment: Mark Mayfield MD Signature: with User ID: Julia : with User ID: Julia : I was personally available for consultation and serving as supervising physician for the MLP.
== END 2020-09-23 13:38 | disposition home or self-care (01) | DRG 807 ==
LOC: LC 07:30 → LR 07:48 → 2S 11:58
PROVIDERS: ADMIT Obstetrics & Gynecology Gynecology; ATTEND Obstetrics & Gynecology Gynecology
PROC: 10E0XZZ Delivery of Products of Conception, External Approach (ICD-10-PCS; principal; 2020-09-21)
PROC: 10907ZC Drainage of Amniotic Fluid, Therapeutic from Products of Conception, Via Natural or Artificial Opening (ICD-10-PCS; 2020-09-21)
DX: O32.6XX0 Maternal care for compound presentation, not applicable or unspecified (principal); Z37.0 Single live birth; O99.824 Streptococcus B carrier state complicating childbirth; Z3A.39 39 weeks gestation of pregnancy
CPT/HCPCS: 36415; 80307; 85025; 85027; 85461; 86592; 86850; 86870; 86900; 86901; J2540; J2590; J2790; J3490; J7060

== ENCOUNTER 2020-09-24 18:33 | Emergency (ER) | payer OTHER ==
--- NOTE | 2020-09-24 18:55 | ER Document Report ---
ED Medical Screen (RME) - General Chief Complaint: Chest Pain Stated Complaint: LEG SWELLING,RIGHT ARM TINGLING,CHEST TIGHT Time Seen by Provider: 09/24/20 18:46 Primary Care Provider: MECHELLE VERNON [Primary Care Provider] - Follow up as needed Mode of Arrival: Ambulatory Information source: Patient TRAVEL OUTSIDE OF THE [place] IN LAST 30 DAYS: No - HPI Patient complains to provider of: Leg swelling, headache, chest pressure, right hand tingling Notes: 09/24/20 18:54 Patient here with complaints of being approximately 1 week after vaginal delivery. Patient states that she has been having some intermittent headaches, intermittent blurred vision, leg swelling, occasional breast pain. She also reports that her right hand feels tingly and numb. She denies any weakness. No fevers. No history of hypertension. No blood pressure problems during the . Exam: Nontoxic, no distress. Lungs clear throughout. Nonfocal neuro exam. No pitting edema to the bilateral lower extremities. An initial examination was made on the patient as part of the triage process, and it was determined a more comprehensive evaluation was necessary. Initial orders were placed and patient was transferred to another provider in the ED who assumed care and finished evaluation and plan. - Related Data Allergies/Adverse Reactions: No Known Allergies Allergy (Verified 09/24/20 18:44) Past Medical History - Social History Chew tobacco use (# tins/day): No Frequency of alcohol use: None Drug Abuse: None Renal/ Medical History: Denies: Hx Peritoneal Dialysis - Immunizations Immunizations up to date: Yes Hx Diphtheria, Pertussis, Tetanus Vaccination: Yes Physical Exam - Vital signs Vitals: Temp Pulse Resp BP Pulse Ox 98.5 F 71 16 143/76 H 99 09/24/20 18:42 09/24/20 18:42 09/24/20 18:42 09/24/20 18:42 09/24/20 18:42 Course - Vital Signs Vital signs: Temp Pulse Resp BP Pulse Ox 98.5 F 71 16 143/76 H 99 09/24/20 18:42 09/24/20 18:42 09/24/20 18:42 09/24/20 18:42 09/24/20 18:42 Doctor's Discharge - Discharge Referrals: SAULO,MECHELLE [Primary Care Provider] - Follow up as needed
[2020-09-24 19:16] LABS: ABSOLUTE EOSINOPHILS # (AUTO) 0.2 10^3/uL (0.0-0.6); ABSOLUTE LYMPHOCYTES (AUTO) 1.6 10^3/uL (0.5-4.7); ABSOLUTE MONOCYTES (AUTO) 0.5 10^3/uL (0.1-1.4); BASOPHILS % (AUTO) 0.5 % (0-2); EOSINOPHILS % (AUTO) 2.6 % (0-6); HEMATOCRIT 35.3 % (36.0-47.0); LYMPHOCYTES % (AUTO) 21.8 % (13-45); MEAN CORPUSCULAR VOLUME 94 fl (80-97); MONOCYTES % (AUTO) 6.2 % (3-13); PLATELET COUNT 130 10^3/uL (150-450); RED BLOOD COUNT 3.75 10^6/uL (3.72-5.28); RED CELL DISTRIBUTION WIDTH 13.3 % (11.5-14.0); SEGMENTED NEUTROPHILS % (AUTO) 68.9 % (42-78); TOTAL CELLS COUNTED % (AUTO) 100 %; WHITE BLOOD COUNT 7.3 10^3/uL (4.0-10.5)
[2020-09-24 19:24] LABS: APPEARANCE,URINE SLIGHTLY-CLOUDY; BILIRUBIN,URINE NEGATIVE (NEGATIVE); COLOR,URINE RED; GLUCOSE, URINE NEGATIVE (NEGATIVE); KETONES,URINE NEGATIVE (NEGATIVE); LEUKOCYTE ESTERASE,URINE MODERATE (NEGATIVE); NITRITE,URINE NEGATIVE (NEGATIVE); PROTEIN,URINE 100 mg/dL (NEGATIVE); URINE SPECIFIC GRAVITY 1.005; UROBILINOGEN,URINE NEGATIVE mg/dL (<2.0)
--- NOTE | 2020-09-24 19:30 | RADIOLOGY REPORT (SQ) ---
EXAM DESCRIPTION: CHEST 2 VIEWS IMAGES COMPLETED DATE/TIME: 09/24/2020 7:12 pm REASON FOR STUDY: Leg swelling, COMPARISON: None. EXAM PARAMETERS: NUMBER OF VIEWS: two views TECHNIQUE: Digital Frontal and Lateral radiographic views of the chest acquired. RADIATION DOSE: NA LIMITATIONS: none FINDINGS: LUNGS AND PLEURA: No opacities, masses or pneumothorax. No pleural effusion. MEDIASTINUM AND HILAR STRUCTURES: No masses or contour abnormalities. HEART AND VASCULAR STRUCTURES: Heart normal size. No evidence for failure. BONES: No acute findings. HARDWARE: None in the chest. OTHER: No other significant finding. IMPRESSION: NO ACUTE RADIOGRAPHIC FINDING IN THE CHEST. TECHNICAL DOCUMENTATION: JOB ID: [id number] [employer]- All Rights Reserved Reading location - IP/workstation name: [email or web address]
[2020-09-24 19:36] LABS: ALBUMIN 3.2 g/dL (3.5-5.0); ALKALINE PHOSPHATASE 77 U/L (38-126); ASPARTATE AMINO TRANSFERASE 45 U/L (14-36); BILIRUBIN,DIRECT 0.1 mg/dL (0.0-0.4); BILIRUBIN,TOTAL 0.6 mg/dL (0.2-1.3); BLOOD UREA NITROGEN 13 mg/dL (7-20); CALCIUM 9.3 mg/dL (8.4-10.2); CARBON DIOXIDE 30 mmol/L (22-30); GLUCOSE 74 mg/dL (75-110); TOTAL PROTEIN 5.7 g/dL (6.3-8.2)
[2020-09-24 19:41] LABS: CHLORIDE 103 mmol/L (98-107)
[2020-09-24 19:47] LABS: ANION GAP 2 (5-19)
[2020-09-24 19:48] LABS: NT PRO BNP 55 pg/mL (<125); TROPONIN I < 0.012 ng/mL
--- NOTE | 2020-09-24 20:33 | EKG REPORT ---
SEVERITY:- OTHERWISE NORMAL ECG - SINUS RHYTHM BORDERLINE LEFT AXIS DEVIATION : Confirmed by: Kristine Lee MD 24-Sep-2020 20:33:06
--- NOTE | 2020-09-24 20:50 | ER Document Report ---
ED General - General Chief Complaint: Chest Pain Stated Complaint: LEG SWELLING,RIGHT ARM TINGLING,CHEST TIGHT Time Seen by Provider: 09/24/20 18:46 Primary Care Provider: SAULO,MECHELLE [Primary Care Provider] - Follow up as needed Mode of Arrival: Ambulatory TRAVEL OUTSIDE OF THE [place] IN LAST 30 DAYS: No - HPI Notes: Patient is a 30-year-old female presents emergency department for evaluation. She gave via spontaneous vaginal delivery on September 21. No problems during her , it was term. She had no hypertension or eclampsia. She states earlier today she started getting some chest tightness, some right arm numbness, and some blurred vision. It was transient. She states she was not sure if it was brought about by the "stress of my other kids" but thought she should be evaluated given the blurred vision. She denies any symptoms at this time. She has been eating and drinking normally. She had tried breast-feeding, states that she has been having some pain from breast engorgement, and has decided to switch to formula. She has had no fevers or chills. No nausea or vomiting. She is still urinating. Vaginal bleeding is "normal" per her. - Related Data Allergies/Adverse Reactions: No Known Allergies Allergy (Verified 09/24/20 18:44) Home Medications: Motrin as needed Past Medical History - General Information source: Patient - Social History Smoking Status: Never Smoker Chew tobacco use (# tins/day): No Frequency of alcohol use: None Drug Abuse: None Family History: Reviewed & Not Pertinent, CAD - Father, , Other - ALS and mother, Renal/ Medical History: Denies: Hx Peritoneal Dialysis - Immunizations Immunizations up to date: Yes Hx Diphtheria, Pertussis, Tetanus Vaccination: Yes Review of Systems - Review of Systems Constitutional: No symptoms reported EENT: No symptoms reported Cardiovascular: See HPI Respiratory: No symptoms reported Gastrointestinal: No symptoms reported Genitourinary: No symptoms reported Female Genitourinary: See HPI Musculoskeletal: No symptoms reported Skin: No symptoms reported Neurological/Psychological: See HPI Physical Exam - Vital signs Vitals: Temp Pulse Resp BP Pulse Ox 98.5 F 71 16 143/76 H 99 09/24/20 18:42 09/24/20 18:42 09/24/20 18:42 09/24/20 18:42 09/24/20 18:42 - Notes Notes: Vital signs reviewed, please refer to chart. Head is normocephalic, atraumatic. Pupils equal round, reactive to light. Neck is supple without meningismus. Heart is regular rate and rhythm. Lungs are clear to auscultation bilaterally. Abdomen is soft, nontender, normoactive bowel sounds throughout. Extremities without cyanosis, clubbing. Trace pitting edema noted at the ankles. Posterior calves are nontender. Peripheral pulses are equal. Skin is warm and dry. P atient is awake, alert, neurological exam is nonfocal. Course - Re-evaluation Re-evalutation: 09/24/20 20:50 Patient presents to the emergency department for evaluation. She had laboratory investigations as ordered through triage. She does have some mild thrombocytopenia. I did order uric acid and LDH to complete the evaluation. At this time her blood pressure is normal. It was mildly elevated upon arrival. Once all of the labs have come back, I will discuss this with on-call TELESALES MANAGER. At this time the patient is stable. 09/24/20 21:21 My overall lab abnormalities include a very mild elevation in LFTs, mild thrombocytopenia. Both of these were present in the past. She has a mildly elevated LDH, normal uric acid. She was mildly hypertensive on arrival, but is now normotensive. Will discuss with TELESALES MANAGER. Awaiting return phone call. 09/24/20 21:25 Laboratory investigations were discussed with Dr. Jiang, on-call TELESALES MANAGER. She states that these are not surprising numbers for a person who delivered just a few days ago. I discussed with her that the patient's blood pressure improved and I did not think that any sort of intervention pharmacologically was necessary at this time either. She states that close follow-up in the office in the next 24 to 48 hours is appropriate. This is communicated to the patient and she will be discharged. - Vital Signs Vital signs: Temp Pulse Resp BP Pulse Ox 98.5 F 71 16 143/76 H 99 09/24/20 18:42 09/24/20 18:42 09/24/20 18:42 09/24/20 18:42 09/24/20 18:42 - Laboratory Results Result Diagrams: 09/24/20 19:05 09/24/20 19:05 Laboratory Results Interpreted: 09/24/20 09/24/2021 19:05 19:05 19:05 Hct 35.3 L Plt Count 130 L Sodium 134.5 L Anion Gap 2 L Glucose 74 L AST 45 H ALT 39 H Lactate Dehydrogenase Total Protein 5.7 L Albumin 3.2 L Urine Protein 100 H Urine Blood LARGE H Ur Leukocyte Esterase MODERATE H 09/24/20 19:05 Hct Plt Count Sodium Anion Gap Glucose AST ALT Lactate Dehydrogenase 377 H Total Protein Albumin Urine Protein Urine Blood Ur Leukocyte Esterase Critical Laboratory Results Reviewed: No Critical Results - Radiology Results Critical Radiology Results Reviewed: No Critical Results - EKG Interpretation by Me Additional EKG results interpreted by me: 09/24/20 21:28 Sinus mechanism with rate of 67 bpm. Borderline left axis deviation. Normal intervals. No acute ST changes concerning for ischemia or infarction. No studies immediately available for comparison. Discharge - Discharge Clinical Impression: Visual changes, Elevated blood pressure reading, Chest pain Condition: Stable Disposition: HOME, SELF-CARE Instructions: Chest Pain of Unclear Cause ([facility]) Additional Instructions: No clear cause was identified for your symptoms today. Your blood pressure was mildly elevated on arrival but normalized quickly, and has remained normal throughout the course of your stay. Your work-up here showed some changes that have been present for some time but no other concerning changes. Please follow- up with TELESALES MANAGER in the next 24 to 48 hours. If your vision changes worsen, or you develop new or concerning symptoms of any sort, please return immediately to the emergency department for reevaluation. Referrals: [facility] [[facility]] - Follow up as needed
[2020-09-24 20:59] LABS: URIC ACID 4.1 mg/dL (2.5-6.2)
[2020-09-24 21:51] VITALS: BP 104/77
== END 2020-09-24 21:51 | disposition home or self-care (01) ==
LOC: ER 18:33
DX: O90.9 Complication of the puerperium, unspecified (principal); R07.89 Other chest pain; R03.0 Elevated blood-pressure reading, without diagnosis of hypertension; H53.8 Other visual disturbances; R20.2 Paresthesia of skin; R51.9 Headache, unspecified
CPT/HCPCS: 36415; 71046; 80053; 81001; 83615; 83880; 84484; 84550; 85025; 93005; 93010; 99285

== ENCOUNTER 2020-10-01 14:02 | Emergency (ER) | payer OTHER ==
--- NOTE | 2020-10-01 14:26 | ER Document Report ---
ED Medical Screen (RME) - General Chief Complaint: Vaginal Bleeding Stated Complaint: VAGINAL BLEEDING Time Seen by Provider: 10/01/20 14:21 Primary Care Provider: MECHELLE VERNON [Primary Care Provider] - Follow up as needed Mode of Arrival: Ambulatory Information source: Patient Notes: HPI; 30-year-old female presents to the emergency room stating that she passed a large blood clot vaginally earlier today. States she had a vaginal delivery on September 21 has been bleeding since her delivery but worsened this morning. Some mild cramping. No fevers. No urinary symptoms. No meds for symptoms. Denies any sexual activity since the delivery. PE: Alert and oriented x3. Lungs: Clear to auscultation without rales, rhonchi, wheezes. Heart: Regular rate rhythm without murmurs, rubs, gallops. I have greeted and performed a rapid initial assessment of this patient. A comprehensive ED assessment and evaluation of the patient, analysis of test results and completion of the medical decision making process will be conducted by additional ED providers. I have specifically instructed the patient or family members with the patient to immediately return to any nursing staff should anything change in the patient's condition or with their chief complaint. TRAVEL OUTSIDE OF THE [place] IN LAST 30 DAYS: No - Related Data Allergies/Adverse Reactions: No Known Allergies Allergy (Verified 10/01/20 14:21) Past Medical History Renal/ Medical History: Denies: Hx Peritoneal Dialysis - Immunizations Immunizations up to date: Yes Hx Diphtheria, Pertussis, Tetanus Vaccination: Yes Physical Exam - Vital signs Vitals: Temp Pulse Resp BP Pulse Ox 98.7 F 78 20 133/74 H 98 10/01/20 14:11 10/01/20 14:11 10/01/20 14:11 10/01/20 14:11 10/01/20 14:11 Course - Vital Signs Vital signs: Temp Pulse Resp BP Pulse Ox 98.7 F 78 20 133/74 H 98 10/01/20 14:11 10/01/20 14:11 10/01/20 14:11 10/01/20 14:11 10/01/20 14:11 Doctor's Discharge - Discharge Referrals: SAULO,MECHELLE [Primary Care Provider] - Follow up as needed
[2020-10-01 15:27] LABS: ABSOLUTE EOSINOPHILS # (AUTO) 0.1 10^3/uL (0.0-0.6); ABSOLUTE LYMPHOCYTES (AUTO) 1.4 10^3/uL (0.5-4.7); ABSOLUTE MONOCYTES (AUTO) 0.4 10^3/uL (0.1-1.4); ABSOLUTE NEUT (AUTO) 4.9 10^3/uL (1.7-8.2); BASOPHILS % (AUTO) 0.6 % (0-2); EOSINOPHILS % (AUTO) 1.2 % (0-6); HEMATOCRIT 39.9 % (36.0-47.0); HEMOGLOBIN 13.2 g/dL (12.0-15.5); LYMPHOCYTES % (AUTO) 20.8 % (13-45); MEAN CORPUSCULAR HEMOGLOBIN 31.5 pg (27.0-33.4); MEAN CORPUSCULAR HGB CONC 33.1 g/dL (32.0-36.0); MEAN CORPUSCULAR VOLUME 95 fl (80-97); MONOCYTES % (AUTO) 6.1 % (3-13); PLATELET COUNT 191 10^3/uL (150-450); RED BLOOD COUNT 4.19 10^6/uL (3.72-5.28); RED CELL DISTRIBUTION WIDTH 13.3 % (11.5-14.0); SEGMENTED NEUTROPHILS % (AUTO) 71.3 % (42-78); TOTAL CELLS COUNTED % (AUTO) 100 %; WHITE BLOOD COUNT 6.8 10^3/uL (4.0-10.5)
[2020-10-01 15:35] LABS: APPEARANCE,URINE CLEAR; BILIRUBIN,URINE NEGATIVE (NEGATIVE); COLOR,URINE COLORLESS; GLUCOSE, URINE NEGATIVE (NEGATIVE); KETONES,URINE NEGATIVE (NEGATIVE); LEUKOCYTE ESTERASE,URINE NEGATIVE (NEGATIVE); NITRITE,URINE NEGATIVE (NEGATIVE); PROTEIN,URINE NEGATIVE (NEGATIVE); URINE SPECIFIC GRAVITY 1.003; UROBILINOGEN,URINE NEGATIVE mg/dL (<2.0)
[2020-10-01 15:36] LABS: ALBUMIN 3.9 g/dL (3.5-5.0); ALKALINE PHOSPHATASE 72 U/L (38-126); ASPARTATE AMINO TRANSFERASE 41 U/L (14-36); BILIRUBIN,DIRECT 0.1 mg/dL (0.0-0.4); BILIRUBIN,TOTAL 0.6 mg/dL (0.2-1.3); BLOOD UREA NITROGEN 16 mg/dL (7-20); CALCIUM 9.5 mg/dL (8.4-10.2); GLUCOSE 81 mg/dL (75-110); POTASSIUM 4.2 mmol/L (3.6-5.0); TOTAL PROTEIN 6.7 g/dL (6.3-8.2)
[2020-10-01 15:42] LABS: ANION GAP 5 (5-19); CARBON DIOXIDE 28 mmol/L (22-30); CHLORIDE 102 mmol/L (98-107)
--- NOTE | 2020-10-01 16:12 | ER Document Report ---
ED GI/ - General Chief Complaint: Vaginal Bleeding Stated Complaint: VAGINAL BLEEDING Time Seen by Provider: 10/01/20 14:21 Primary Care Provider: GAGE SOTO MD [ACTIVE STAFF] - Follow up tomorrow [facility] [Primary Care Provider] - Follow up as needed Mode of Arrival: Ambulatory TRAVEL OUTSIDE OF THE [place] IN LAST 30 DAYS: No - HPI Notes: 10/01/20 16:09 Patient is a 30-year-old female who is a G4, P4 and is status post vaginal delivery on September 21 who presents with passing a blood clot. Patient states she has had normal vaginal bleeding since the delivery. She is not filling up any pads. She stated that today she passed a large clot. She was concerned so she came here to get evaluation. She did have some cramping before and after passing the clot. Currently, she does not have any cramping. No chest pain or shortness of breath. No fevers or chills. She states it was a normal vaginal delivery without complications. She has not had any medical problems. - Related Data Allergies/Adverse Reactions: No Known Allergies Allergy (Verified 10/01/20 14:21) Past Medical History - General Information source: Patient - Social History Smoking Status: Never Smoker Family History: Reviewed & Not Pertinent, CAD - Father, , Other - ALS and mother, Renal/ Medical History: Denies: Hx Peritoneal Dialysis - Immunizations Immunizations up to date: Yes Hx Diphtheria, Pertussis, Tetanus Vaccination: Yes Review of Systems - Review of Systems Notes: CONSTITUTIONAL: No fever, fatigue or weight loss. SKIN: No rash. HENT: No congestion, ear pain, or sore throat. EYES: No recent vision problems or eye pain. CARDIOVASCULAR: No chest pain or edema. RESPIRATORY: No cough, shortness of breath, congestion, or wheezing. GASTROINTESTINAL: No abdominal pain, nausea, vomiting, bloody stools or diarrhea. Positive for pelvic cramping. GENITOURINARY: No dysuria. Positive for passing a blood clot vaginally. MUSCULOSKELETAL: No joint pain or swelling. LYMPHATIC: No swollen glands. NEUROLOGIC: No seizures. No headache, focal weakness or sensory changes. HEMATOLOGIC: No unusual bruising or bleeding. PSYCHIATRIC: No depression or anxiety. Physical Exam - Vital signs Vitals: Temp Pulse Resp BP Pulse Ox 98.7 F 78 20 133/74 H 98 10/01/20 14:11 10/01/20 14:11 10/01/20 14:11 10/01/20 14:11 10/01/20 14:11 - General General appearance: Appears well In distress: None Notes: VITAL SIGNS: Within normal limits. GENERAL: No acute distress, non-toxic appearance. Talking on the phone. HEAD: Normal with no signs of head trauma. EYES: Conjunctiva normal, no discharge. EARS: Hearing grossly intact. NOSE: Normal. NECK: Normal range of motion, supple. CHEST: Clear breath sounds bilaterally. No wheezes, rales, or rhonchi. CARDIAC: Regular rate and rhythm. VASCULAR: No Edema. ABDOMEN: Normal and soft with no tenderness, no masses or pulsatile masses. GENITOURINARY: Normal, No tenderness MUSCULOSKELETAL: Good range of motion of all major joints. Extremities without clubbing, cyanosis or edema. NEUROLOGICAL: Alert and oriented x 3. No focal sensory or strength deficits. Speech normal. Follows commands appropriately. PSYCHIATRIC: Normal Affect, judgement and mood. SKIN: Normal appearance with no rashes or lesions. Course - Re-evaluation Re-evalutation: 10/01/20 16:12 Patient appears well on exam. She is in no acute distress. We will obtain an ultrasound to evaluate for any retained products of conception. Patient's ultrasound could not rule out endometritis. Discussed with Dr. Soto, from OB, she recommended that I place her on a course of doxycycline. She also recommended patient call tomorrow for follow-up. I discussed all this with the patient and she is in agreement. She is not breast-feeding. Patient does mention that she has had increased discomfort in the vaginal area. She is very agreeable with the plan for antibiotics and follow-up. She was given strict r eturn precautions including fevers, chills, worsening symptoms and she verbalized understanding. 10/02/20 01:15 - Vital Signs Vital signs: Temp Pulse Resp BP Pulse Ox 98.1 F 68 20 125/54 L 100 10/01/20 17:31 10/01/20 17:31 10/01/20 17:31 10/01/20 17:31 10/01/20 17:31 - Laboratory Results Result Diagrams: 10/01/20 14:45 10/01/20 14:45 Laboratory Results Interpreted: 10/01/20 10/01/20 14:45 14:45 Sodium 134.9 L AST 41 H ALT 51 H Urine Blood MODERATE H Critical Laboratory Results Reviewed: No Critical Results - Radiology Results Critical Radiology Results Reviewed: No Critical Results Discharge - Discharge Clinical Impression: Vaginal bleeding, Pelvic pain Condition: Stable Disposition: HOME, SELF-CARE Instructions: Vaginal Bleeding ([facility]) Additional Instructions: Your work-up today is reassuring. I did discuss with Dr. Soto from [facility] who recommended that we start you on antibiotic. They will call you for an appointment tomorrow. If you do not hear from them please call them tomorrow afternoon. I will provide the number. Please return to the ER immediately if you have any worsening bleeding, any fevers, any abdominal pain, any other concerning symptoms.. Please follow-up with OB. Prescriptions: Doxycycline Hyclate [Vibramycin 100 mg Tablet] 100 mg PO BID 10 Days #20 tablet Referrals: [facility] [Primary Care Provider] - Follow up as needed GAGE SOTO MD [ACTIVE STAFF] - Follow up tomorrow
--- NOTE | 2020-10-01 16:50 | RADIOLOGY REPORT (SQ) ---
EXAM DESCRIPTION: U/S NON OB PEL W/DOPPLER IMAGES COMPLETED DATE/TIME: 10/01/2020 3:30 pm REASON FOR STUDY: vaginal bleeding. 10 days . COMPARISON: None. TECHNIQUE: Dynamic and static grayscale images acquired of the pelvis via transabdominal approach an d recorded on PACS. Additional selected color Doppler and spectral images recorded. LIMITATIONS: None. FINDINGS: UTERUS: Mildly enlarged uterus, consistent with state. Normal contour. No hudson metrial mass. ENDOMETRIAL STRIPE: Mildly heterogeneous endometrium with fluid in the endometrial lining. Color Dop pler imaging demonstrates no significant vascularity. Endometrium measures 14 mm thickness, within n ormal limits. CERVIX: Normal contour. RIGHT OVARY AND DOPPLER: Normal size. No worrisome masses. Normal arterial vascular flow without evid ence for torsion. LEFT OVARY AND DOPPLER: Normal size. No worrisome masses. Normal arterial vascular flow without evide nce for torsion. FREE FLUID: None noted. OTHER: No other significant finding. MEASUREMENTS: UTERUS: 13.7 x 10 x 9.6 cm ENDOMETRIAL STRIPE: 14 mm RIGHT OVARY: 3 x 2.3 x 1.8 cm LEFT OVARY: 3.8 x 2.2 x 2 cm IMPRESSION: Heterogeneous appearance of the endometrium with small amount of heterogeneous free flui d, within limits for state. Color Doppler imaging demonstrates no significant vascularity . No evidence of retained products of conception. Cannot entirely exclude endometritis. Clinical c orrelation with patient presentation and white count is recommended. TECHNICAL DOCUMENTATION: JOB ID: [id number] 2010 [employer]- All Rights Reserved Rev Reading location - IP/workstation name: [email or web address]
[2020-10-01] MEDS ORDERED: DOXYCYCLINE HYCLATE 100 MG TABLET PO ONE (17:19)
[2020-10-01 17:32] VITALS: BP 125/54
== END 2020-10-01 17:43 | disposition home or self-care (01) ==
LOC: ER 14:02
DX: O72.2 Delayed and secondary postpartum hemorrhage (principal); O90.89 Other complications of the puerperium, not elsewhere classified; R10.2 Pelvic and perineal pain
CPT/HCPCS: 36415; 76856; 80053; 81001; 85025; 93976; 99284